=== PATIENT | female | born 1935 | race Caucasian/White ===

== ENCOUNTER 2018-02-02 15:09 | Emergency (ER) | payer BC, OTHER ==
[2018-02-02] MEDS: methylPREDNISolone INJ 125 MG/2 ML VIAL (J2930) IM (17:43)
== END 2018-02-02 17:44 | disposition home or self-care (01) ==
LOC: M ED 15:09
DX: M54.16 Radiculopathy, lumbar region (principal)
CPT/HCPCS: J2930

== ENCOUNTER → 2021-02-08 | Outpatient (REF) | payer BC, MEDICARE ==
[~2021-02-08] MED LIST: CLAR10CA3 PO; ESTR0.059 TD; FLUT11IN INH; HYDR-3713 PO; LIDO5DIS41 TD; METF500T13 PO; PROAAER10 INH; ZAFI1TAB PO
[2021-02-08 18:55] LABS: BASO % 0.4 % (0.0-1.0); EOS # 0.4 10^3/uL (0.0-0.5); HEMATOCRIT 34.6 % (36.0-47.0); HEMOGLOBIN 10.3 g/dl (12.0-15.5); LYMPH # 1.8 10^3/uL (1.5-5.0); LYMPH % 23.6 % (24.0-44.0); MEAN CORPUSCULAR HEMOGLOBIN 30.5 pg (27.0-33.0); MEAN CORPUSCULAR HGB CONC 29.8 g/dl (32.0-36.5); MEAN CORPUSCULAR VOLUME 102.4 fl (80.0-96.0); MONO # 0.6 10^3/uL (0.0-0.8); MONO % 8.2 % (2.0-8.0); NEUTROPHILS # 4.6 10^3/uL (1.5-8.5); NEUTROPHILS % 62.5 % (36.0-66.0); PLATELET COUNT, AUTOMATED 272 10^3/uL (150-450); RED BLOOD COUNT 3.38 10^6/uL (4.00-5.40); WHITE BLOOD COUNT 7.4 10^3/uL (4.0-10.0)
[2021-02-08 19:19] LABS: ALBUMIN 3.9 GM/DL (3.2-5.2); ALT/SGPT 22 U/L (12-78); BILIRUBIN,TOTAL 0.2 MG/DL (0.2-1.0); BLOOD UREA NITROGEN 18 MG/DL (7-18); CALCIUM LEVEL 8.9 MG/DL (8.8-10.2); CARBON DIOXIDE LEVEL 28 MEQ/L (21-32); CHLORIDE LEVEL 106 MEQ/L (98-107); CHOLESTEROL LEVEL 149 MG/DL (<200); CHOLESTEROL RISK RATIO 2.865 (<5); CREATININE FOR GFR 0.71 MG/DL (0.55-1.30); FREE T4 0.94 NG/DL (0.76-1.46); GLOMERULAR FILTRATION RATE > 60.0 (>32); GLUCOSE, FASTING 121 MG/DL (70-100); HDL CHOLESTEROL 52 MG/DL (>40); LDL CHOLESTEROL 69 MG/DL (<100); NON-HDL-C 97 MG/DL; POTASSIUM SERUM 4.5 MEQ/L (3.5-5.1); SODIUM LEVEL 139 MEQ/L (136-145); TRIGLYCERIDES LEVEL 138 MG/DL (<150)
[2021-02-08 19:21] LABS: MALB URINE SIEMENS 39.5 MG/L
[2021-02-08 19:26] LABS: HEMOGLOBIN A1c 6.7 %
[2021-02-09 14:15] LABS: TOTAL 25(OH) VITAMIN D 17.7 NG/ML (30.0-100.0)
== END ==
LOC: M SFHCPLAZ 15:18
PROVIDERS: ATTEND Nurse Practitioner Family
DX: D64.9 Anemia, unspecified (principal); E11.9 Type 2 diabetes mellitus without complications; E78.5 Hyperlipidemia, unspecified; E55.9 Vitamin D deficiency, unspecified

== ENCOUNTER → 2021-02-08 | Outpatient (CLI) | payer BC, MEDICARE ==
--- NOTE | 2021-02-09 04:12 | REPPI ---
INDICATION: M54.9 BACK PAIN, CHRONIC COMPARISON: 02/02/2018 TECHNIQUE: AP, lateral, bilateral oblique, and coned-down views of the lumbar spine. FINDINGS: Generalized age-related osteopenia and advanced multilevel degenerative changes have slightly progressed from prior examination. Findings include endplate sclerosis, osteophytosis, disc space narrowing and facet hypertrophy. Findings most prominent at L4-5 and L5-S1. Lordosis maintained in the lateral projection. Mild stable chronic scoliosis noted in the frontal projection. No evidence for acute fracture/compression injury or subluxation. IMPRESSION: Mildly progressive advanced multilevel degenerative spondylosis. No acute fracture/compression injury or subluxation. <Electronically signed by Lul Nguyễn > 02/09/21 0400
== END ==
LOC: M PLAIMG 15:16
PROVIDERS: ATTEND Nurse Practitioner Family
DX: M47.816 Spondylosis without myelopathy or radiculopathy, lumbar region (principal); M54.9 Dorsalgia, unspecified

== ENCOUNTER → 2021-11-30 | Outpatient (CLI) | payer MEDICARE | LOC: M PLAIMG 11:36 | PROVIDERS: ATTEND Nurse Practitioner Family | DX: M17.0 Bilateral primary osteoarthritis of knee (principal) ==

== ENCOUNTER → 2021-12-22 | Outpatient (CLI) | payer MEDICARE | LOC: M SOG 08:34 | PROVIDERS: ATTEND Orthopaedic Surgery Adult Reconstructive Orthopaedic Surgery | DX: M25.762 Osteophyte, left knee (principal); M25.761 Osteophyte, right knee ==

== ENCOUNTER → 2022-03-21 | Outpatient (CLI) | payer MEDICARE, BC ==
[2022-03-21 15:40] LABS: BASO % 0.6 % (0.0-1.0); EOS # 0.4 10^3/uL (0.0-0.5); EOS % 6.3 % (0.0-3.0); HEMATOCRIT 31.5 % (36.0-47.0); HEMOGLOBIN 8.9 g/dl (12.0-15.5); LYMPH # 1.5 10^3/uL (1.5-5.0); LYMPH % 22.5 % (24.0-44.0); MEAN CORPUSCULAR HEMOGLOBIN 27.5 pg (27.0-33.0); MEAN CORPUSCULAR HGB CONC 28.3 g/dl (32.0-36.5); MEAN CORPUSCULAR VOLUME 97.2 fl (80.0-96.0); MONO # 0.7 10^3/uL (0.0-0.8); MONO % 10.8 % (2.0-8.0); NEUTROPHILS % 59.4 % (36.0-66.0); PLATELET COUNT, AUTOMATED 217 10^3/uL (150-450); RED BLOOD COUNT 3.24 10^6/uL (4.00-5.40); WHITE BLOOD COUNT 6.7 10^3/uL (4.0-10.0)
[2022-03-21 16:15] LABS: CREATININE, URINE 91.7 MG/DL; MAU/CREAT RATIO 42.5 MCG/MG (0.0-30.0)
[2022-03-21 16:18] LABS: ALBUMIN 3.5 GM/DL (3.2-5.2); ALT/SGPT 21 U/L (12-78); BILIRUBIN,TOTAL 0.3 MG/DL (0.2-1.0); BLOOD UREA NITROGEN 19 MG/DL (7-18); CALCIUM LEVEL 8.6 MG/DL (8.8-10.2); CARBON DIOXIDE LEVEL 32 MEQ/L (21-32); CHLORIDE LEVEL 103 MEQ/L (98-107); CHOLESTEROL LEVEL 128 MG/DL (<200); CHOLESTEROL RISK RATIO 2.909 (<5); CREATININE FOR GFR 0.63 MG/DL (0.55-1.30); FREE T4 0.91 NG/DL (0.76-1.46); GLOMERULAR FILTRATION RATE > 60.0 (>32); GLUCOSE, FASTING 124 MG/DL (70-100); HDL CHOLESTEROL 44 MG/DL (>40); LDL CHOLESTEROL 60 MG/DL (<100); NON-HDL-C 84 MG/DL; POTASSIUM SERUM 4.5 MEQ/L (3.5-5.1); SODIUM LEVEL 136 MEQ/L (136-145); TOTAL PROTEIN 6.6 GM/DL (6.4-8.2); TRIGLYCERIDES LEVEL 120 MG/DL (<150)
== END ==
LOC: M PLALAB 14:14
PROVIDERS: ATTEND Nurse Practitioner Family
DX: E11.9 Type 2 diabetes mellitus without complications (principal); Z79.899 Other long term (current) drug therapy

== ENCOUNTER 2022-05-23 12:09 | Emergency (ER) | payer BC, MEDICARE ==
[~2022-05-23] VITALS: Ht 165.1 cm; Wt 75.0 kg
[2022-05-23] MEDS ORDERED: SUCR1ORA2 (13:24)
[2022-05-23] MEDS ORDERED: GLIP5TAB20 (13:24)
[2022-05-23 15:22] LABS: HEMATOCRIT 30.9 % (36.0-47.0); HEMOGLOBIN 8.7 g/dl (12.0-15.5); MEAN CORPUSCULAR HEMOGLOBIN 26.5 pg (27.0-33.0); MEAN CORPUSCULAR HGB CONC 28.2 g/dl (32.0-36.5); MEAN CORPUSCULAR VOLUME 94.2 fl (80.0-96.0); PLATELET COUNT, AUTOMATED 198 10^3/uL (150-450); RED BLOOD COUNT 3.28 10^6/uL (4.00-5.40); WHITE BLOOD COUNT 6.9 10^3/uL (4.0-10.0)
[2022-05-23 15:36] LABS: INR 0.94; PARTIAL THROMBOPLASTIN TIME 27.5 SECONDS (25.9-37.0)
[2022-05-23 15:56] LABS: ALBUMIN 3.6 GM/DL (3.2-5.2); ALT/SGPT 23 U/L (12-78); BILIRUBIN,DIRECT 0.1 MG/DL (0.0-0.2); BILIRUBIN,TOTAL 0.3 MG/DL (0.2-1.0); BLOOD UREA NITROGEN 14 MG/DL (7-18); CALCIUM LEVEL 8.8 MG/DL (8.8-10.2); CARBON DIOXIDE LEVEL 32 MEQ/L (21-32); CHLORIDE LEVEL 101 MEQ/L (98-107); GLOMERULAR FILTRATION RATE > 60.0 (>32); GLUCOSE, FASTING 141 MG/DL (70-100); POTASSIUM SERUM 4.5 MEQ/L (3.5-5.1); SODIUM LEVEL 135 MEQ/L (136-145); TOTAL PROTEIN 6.9 GM/DL (6.4-8.2)
[2022-05-23 15:57] LABS: RSV AMPLIFICATION NEGATIVE (NEGATIVE)
[2022-05-23 16:44] VITALS: BP 179/77
== END 2022-05-23 17:29 | disposition left against medical advice (07) ==
LOC: M ED 12:09
DX: K92.2 Gastrointestinal hemorrhage, unspecified (principal); I44.0 Atrioventricular block, first degree; I44.4 Left anterior fascicular block; I51.0 Cardiac septal defect, acquired; E11.9 Type 2 diabetes mellitus without complications; E78.5 Hyperlipidemia, unspecified; Z88.0 Allergy status to penicillin; Z88.2 Allergy status to sulfonamides; Z88.6 Allergy status to analgesic agent; Z79.4 Long term (current) use of insulin; Z79.899 Other long term (current) drug therapy; Z53.21 Procedure and treatment not carried out due to patient leaving prior to being seen by health care provider

== ENCOUNTER 2022-05-25 11:38 | Emergency (ER) | payer MEDICARE ==
[~2022-05-25] VITALS: Ht 165.1 cm; Wt 75.0 kg
[~2022-05-25 11:38] MED LIST changes: +GLIP5TAB20; +SUCR1ORA2
[2022-05-25 12:36] LABS: BASO % 0.5 % (0.0-1.0); EOS # 0.3 10^3/uL (0.0-0.5); EOS % 3.8 % (0.0-3.0); HEMOGLOBIN 8.7 g/dl (12.0-15.5); LYMPH # 1.5 10^3/uL (1.5-5.0); LYMPH % 17.7 % (24.0-44.0); MEAN CORPUSCULAR HGB CONC 28.1 g/dl (32.0-36.5); MEAN CORPUSCULAR VOLUME 92.8 fl (80.0-96.0); MONO # 0.8 10^3/uL (0.0-0.8); MONO % 9.2 % (2.0-8.0); NEUTROPHILS # 5.9 10^3/uL (1.5-8.5); NEUTROPHILS % 68.5 % (36.0-66.0); PLATELET COUNT, AUTOMATED 216 10^3/uL (150-450); RED BLOOD COUNT 3.34 10^6/uL (4.00-5.40); WHITE BLOOD COUNT 8.6 10^3/uL (4.0-10.0)
[2022-05-25 12:52] LABS: INR 0.94
[2022-05-25 13:00] LABS: ALBUMIN 3.5 GM/DL (3.2-5.2); ALT/SGPT 26 U/L (12-78); BILIRUBIN,DIRECT < 0.1 MG/DL (0.0-0.2); BILIRUBIN,TOTAL 0.3 MG/DL (0.2-1.0); BLOOD UREA NITROGEN 17 MG/DL (7-18); CALCIUM LEVEL 8.6 MG/DL (8.8-10.2); CARBON DIOXIDE LEVEL 30 MEQ/L (21-32); CHLORIDE LEVEL 104 MEQ/L (98-107); CK-MB VALUE MASS 1.1 NG/ML (<3.6); CREATININE FOR GFR 0.78 MG/DL (0.55-1.30); GLOMERULAR FILTRATION RATE > 60.0 (>32); GLUCOSE, FASTING 140 MG/DL (70-100); MB/CK RELATIVE INDEX 1.55 (< OR =4); POTASSIUM SERUM 4.4 MEQ/L (3.5-5.1); SODIUM LEVEL 136 MEQ/L (136-145); TOTAL PROTEIN 6.7 GM/DL (6.4-8.2)
[2022-05-25 13:45] VITALS: BP 150/72
[2022-05-25 14:03] LABS: FERRITIN 8 NG/ML (8-252); IRON (FE) 18 UG/DL (50-170); PERCENT SATURATION 4.8 % (13.2-45.0); TOTAL IRON BINDING CAPACITY 377 UG/DL (250-450)
== END 2022-05-25 14:15 | disposition home or self-care (01) ==
LOC: M ED 11:38
DX: R42 Dizziness and giddiness (principal); E11.9 Type 2 diabetes mellitus without complications; J45.20 Mild intermittent asthma, uncomplicated; E78.5 Hyperlipidemia, unspecified; Z79.899 Other long term (current) drug therapy; Z79.84 Long term (current) use of oral hypoglycemic drugs; Z88.0 Allergy status to penicillin; Z88.1 Allergy status to other antibiotic agents; Z88.2 Allergy status to sulfonamides; Z88.8 Allergy status to other drugs, medicaments and biological substances

== ENCOUNTER → 2022-07-14 | Outpatient (CLI) | payer MEDICARE ==
[~2022-07-14] MED LIST changes: -GLIP5TAB20; +GLIP5TAB20 PO; -SUCR1ORA2; +SUCR1ORA2 PO
== END ==
LOC: M LABSMTC 09:54
PROVIDERS: ATTEND Anesthesiology
DX: Z01.818 Encounter for other preprocedural examination (principal); Z11.52 Encounter for screening for COVID-19

== ENCOUNTER 2022-07-19 13:07 | Day surgery (SDC) | payer MEDICARE ==
[~2022-07-19] VITALS: Ht 162.6 cm; Wt 71.2 kg
[~2022-07-19 13:07] MED LIST changes: +NS 1,000 ML IV ONE; +propofoL 200 MG/20 ML VIAL As Ordered ONE
[2022-07-19 16:27] VITALS: BP 143/92
== END 2022-07-19 16:30 | disposition home or self-care (01) ==
LOC: M OPP 13:07
PROVIDERS: ATTEND Surgery
DX: D50.9 Iron deficiency anemia, unspecified (principal); K44.9 Diaphragmatic hernia without obstruction or gangrene; K29.70 Gastritis, unspecified, without bleeding; J45.909 Unspecified asthma, uncomplicated; E11.9 Type 2 diabetes mellitus without complications; Z80.1 Family history of malignant neoplasm of trachea, bronchus and lung; Z80.51 Family history of malignant neoplasm of kidney; Z79.51 Long term (current) use of inhaled steroids; Z79.84 Long term (current) use of oral hypoglycemic drugs; Z79.891 Long term (current) use of opiate analgesic; Z79.899 Other long term (current) drug therapy; Z88.0 Allergy status to penicillin; Z88.1 Allergy status to other antibiotic agents; Z88.2 Allergy status to sulfonamides; Z88.6 Allergy status to analgesic agent

== ENCOUNTER → 2023-01-10 | Outpatient (CLI) | payer MEDICARE ==
[~2023-01-10] MED LIST changes: -NS 1,000 ML IV ONE; -propofoL 200 MG/20 ML VIAL As Ordered ONE
[2023-01-10 17:14] LABS: BASO % 0.4 % (0.0-1.0); EOS # 0.2 10^3/uL (0.0-0.5); EOS % 2.5 % (0.0-3.0); FERRITIN 8.6 NG/ML (7.3-270.7); HEMATOCRIT 28.6 % (36.0-47.0); HEMOGLOBIN 8.1 g/dl (12.0-15.5); LYMPH # 1.2 10^3/uL (1.5-5.0); LYMPH % 16.2 % (24.0-44.0); MEAN CORPUSCULAR HEMOGLOBIN 26.1 pg (27.0-33.0); MEAN CORPUSCULAR HGB CONC 28.3 g/dl (32.0-36.5); MEAN CORPUSCULAR VOLUME 92.3 fl (80.0-96.0); MONO # 0.7 10^3/uL (0.0-0.8); MONO % 9.8 % (2.0-8.0); NEUTROPHILS # 5.3 10^3/uL (1.5-8.5); NEUTROPHILS % 70.7 % (36.0-66.0); PLATELET COUNT, AUTOMATED 193 10^3/uL (150-450); TOTAL 25(OH) VITAMIN D 37.7 NG/ML (20.0-100.0); VITAMIN B12 LEVEL 1970 PG/ML (211-911); WHITE BLOOD COUNT 7.5 10^3/uL (4.0-10.0)
[2023-01-10 17:15] LABS: TOTAL IRON BINDING CAPACITY 353 UG/DL (250-425)
[2023-01-10 17:16] LABS: ALBUMIN 3.4 G/DL (3.2-5.2); ALKALINE PHOSPHATASE 102 U/L (46-116); ALT/SGPT 13 U/L (7.0-40); AST/SGOT 33 U/L (<34); BILIRUBIN,TOTAL 0.5 MG/DL (0.3-1.2); BLOOD UREA NITROGEN 13 MG/DL (9-23); CALCIUM LEVEL 8.6 MG/DL (8.3-10.6); CARBON DIOXIDE LEVEL 32 MMOL/L (20-31); CHLORIDE LEVEL 100 MMOL/L (98-107); CREATININE FOR GFR 0.65 MG/DL (0.55-1.30); GLOMERULAR FILTRATION RATE > 60.0 (>32); GLUCOSE, FASTING 122 MG/DL (74-106); IRON (FE) 21 UG/DL (50-170); PERCENT SATURATION 5.9 % (13.2-45.0); POTASSIUM SERUM 4.6 MMOL/L (3.5-5.1); SODIUM LEVEL 138 MMOL/L (136-145); TOTAL PROTEIN 6.6 G/DL (5.7-8.2)
[2023-01-10 17:50] LABS: HEMOGLOBIN A1c 6.4 % (4.0-6.0)
== END ==
LOC: M PLALAB 15:18
PROVIDERS: ATTEND Physician Assistant
DX: E55.9 Vitamin D deficiency, unspecified (principal); E11.9 Type 2 diabetes mellitus without complications; D64.9 Anemia, unspecified; Z79.899 Other long term (current) drug therapy

== ENCOUNTER 2023-01-26 14:02 | Outpatient (CLI) | payer MEDICARE ==
[~2023-01-26] VITALS: Ht 165.1 cm; Wt 72.7 kg
[~2023-01-26 14:02] MED LIST changes: +ALBUTEROL SULFATE 2.5MG/0.5ML INH NEB SOLN INH PRN; +EPINEPHrine INJ 1 MG/ML 1ML AMP IM PRN; +FERRIC CARBOXYMALTOSE INJ 750 MG in NS 250 ML (>50kg) IV ONE; +NS 1,000 ML IV SCH; +diphenhydrAMINE 50MG/ML VIAL IV PRN; +methylPREDNISolone 125MG 2ML VIAL IV PRN
[2023-01-26 14:30] VITALS: BP 146/68
[2023-01-26 15:41] VITALS: BP 135/70
== END 2023-01-26 15:45 | disposition home or self-care (01) ==
LOC: M INFU 14:02
PROVIDERS: ATTEND Physician Assistant
DX: D50.9 Iron deficiency anemia, unspecified (principal); Z88.0 Allergy status to penicillin; Z88.2 Allergy status to sulfonamides; Z88.6 Allergy status to analgesic agent
CPT/HCPCS: 96365; J1439

== ENCOUNTER → 2023-02-03 | Outpatient (CLI) | payer MEDICARE ==
[~2023-02-03] MED LIST changes: -ALBUTEROL SULFATE 2.5MG/0.5ML INH NEB SOLN INH PRN; -EPINEPHrine INJ 1 MG/ML 1ML AMP IM PRN; -FERRIC CARBOXYMALTOSE INJ 750 MG in NS 250 ML (>50kg) IV ONE; +GASTROGRAFIN SOLUTION 30ML ONE; +ISOVUE-370 76% 100ML VIAL ONE; -NS 1,000 ML IV SCH; -diphenhydrAMINE 50MG/ML VIAL IV PRN; -methylPREDNISolone 125MG 2ML VIAL IV PRN
== END ==
LOC: M PLAIMG 11:16
PROVIDERS: ATTEND Physician Assistant
DX: D50.9 Iron deficiency anemia, unspecified (principal); R19.5 Other fecal abnormalities
CPT/HCPCS: 74177; Q9963; Q9967

== ENCOUNTER → 2023-04-05 | Outpatient (REF) | payer MEDICARE ==
[~2023-04-05] MED LIST changes: -GASTROGRAFIN SOLUTION 30ML ONE; -ISOVUE-370 76% 100ML VIAL ONE
== END ==
LOC: M SFHCPLAZ 17:15
PROVIDERS: ATTEND Nurse Practitioner Family
DX: Z79.899 Other long term (current) drug therapy (principal)

== ENCOUNTER 2023-05-08 17:47 | Inpatient (IN) | payer MEDICARE ==
[~2023-05-08] VITALS: Ht 165.1 cm; Wt 72.9 kg
[~2023-05-08 17:47] MED LIST changes: -FLUT11IN INH; +FLUT12AE6 INH; -ZAFI1TAB PO; +ZAFI20TA11 PO
[2023-05-08] MEDS ORDERED: PREG100C (18:53)
[2023-05-08] MEDS ORDERED: ESTR0.059 (18:54)
[2023-05-08 19:19] LABS: BASO % 0.6 % (0.0-1.0); EOS # 0.2 10^3/uL (0.0-0.5); HEMATOCRIT 21.9 % (36.0-47.0); LYMPH # 0.9 10^3/uL (1.5-5.0); LYMPH % 17.9 % (24.0-44.0); MEAN CORPUSCULAR HEMOGLOBIN 26.7 pg (27.0-33.0); MEAN CORPUSCULAR HGB CONC 28.3 g/dl (32.0-36.5); MEAN CORPUSCULAR VOLUME 94.4 fl (80.0-96.0); MONO # 0.5 10^3/uL (0.0-0.8); NEUTROPHILS # 3.5 10^3/uL (1.5-8.5); NEUTROPHILS % 67.9 % (36.0-66.0); PLATELET COUNT, AUTOMATED 168 10^3/uL (150-450); RED BLOOD COUNT 2.32 10^6/uL (4.00-5.40); WHITE BLOOD COUNT 5.2 10^3/uL (4.0-10.0)
[2023-05-08 19:26] LABS: HEMOGLOBIN 6.2 g/dl (12.0-15.5)
[2023-05-08 19:40] LABS: CK-MB VALUE MASS 1.8 NG/ML (<3.6); LIPASE 48 U/L (12-53)
[2023-05-08 19:42] LABS: ALBUMIN 3.4 G/DL (3.2-5.2); ALKALINE PHOSPHATASE 72 U/L (46-116); ALT/SGPT 11 U/L (7.0-40); AST/SGOT 18 U/L (<34); BILIRUBIN,DIRECT 0.1 MG/DL (<0.4); BILIRUBIN,TOTAL 0.3 MG/DL (0.3-1.2); BLOOD UREA NITROGEN 19 MG/DL (9-23); CALCIUM LEVEL 9.1 MG/DL (8.3-10.6); CARBON DIOXIDE LEVEL 28 MMOL/L (20-31); CHLORIDE LEVEL 102 MMOL/L (98-107); CPK CREATINE PHOSPHOKINASE 42 U/L (34-145); CREATININE FOR GFR 0.57 MG/DL (0.55-1.30); GLOMERULAR FILTRATION RATE > 60.0 (>32); GLUCOSE, FASTING 162 MG/DL (74-106); MB/CK RELATIVE INDEX 4.28 (< OR =4); POTASSIUM SERUM 4.6 MMOL/L (3.5-5.1); SODIUM LEVEL 137 MMOL/L (136-145); TOTAL PROTEIN 6.2 G/DL (5.7-8.2)
[2023-05-08 19:44] LABS: FREE T4 0.97 NG/DL (0.89-1.76)
[2023-05-08 19:49] LABS: INR 1.05; PROTHROMBIN TIME 13.9 SECONDS (12.5-14.5)
[2023-05-08] MEDS ORDERED: ISOVUE-370 76% 100ML VIAL As Ordered ONE (19:49)
[2023-05-08 19:50] LABS: PARTIAL THROMBOPLASTIN TIME 29.2 SECONDS (24.8-34.2)
[2023-05-08 20:51] LABS: CK-MB VALUE MASS 1.1 NG/ML (<3.6)
[2023-05-08 20:53] LABS: MB/CK RELATIVE INDEX 2.89 (< OR =4)
[2023-05-08] MEDS ORDERED: SUCRALFATE SUSP 1GM/10ML UD PO SCH (21:00)
[2023-05-08 21:05] VITALS: BP 157/68; TEMP 98.6; O2SAT 95
[2023-05-08] MEDS ORDERED: ACETAMINOPHEN TAB 650MG DOSE (2X325MG) PO ONE (21:15)
[2023-05-08] MEDS ORDERED: ESTR0.059 TD (21:51)
[2023-05-08] MEDS ORDERED: PREG100CA PO (21:51)
[2023-05-08] MEDS ORDERED: ALBU8.5H INH (21:51)
[2023-05-08] MEDS ORDERED: SUCR1SS PO (21:51)
[2023-05-08] MEDS ORDERED: LORA-622 PO (21:51)
[2023-05-08] MEDS ORDERED: FLUT12AE2 INH (21:51)
[2023-05-08] MEDS ORDERED: HYDR-4571 PO (21:51)
[2023-05-08] MEDS ORDERED: GLIP5TAB20 PO (21:51)
[2023-05-08] MEDS ORDERED: FLON1SPR (21:54)
[2023-05-08] MEDS ORDERED: HOME MED LIST COMPLETE! XX SCH (21:55)
[2023-05-08] MEDS ORDERED: NORCO, ANEXSIA 5/325MG TABLET (HYDROcodone/ACETAMINOPHEN) PO PRN (22:55)
[2023-05-08] MEDS ORDERED: PREGABALIN 100 MG CAP (LYRICA) PO PRN (22:55)
[2023-05-08] MEDS ORDERED: ALBUTEROL 90 MCG/ACT 8GM HFA INHALER INH PRN (22:55)
[2023-05-08] MEDS ORDERED: HYDROMORPHONE HCL 0.5 MG/ 0.5 ML SYRINGE IV PRN (23:00)
[2023-05-08] MEDS ORDERED: LR 1,000 ML IV SCH (23:00)
[2023-05-08] MEDS ORDERED: DEXTROSE 50% 50ML SYRINGE IV PRN (23:25)
[2023-05-08] MEDS ORDERED: GLUCAGON INJ 1MG VIAL SC PRN (23:25)
[2023-05-08] MEDS ORDERED: GLUCOSE 4GM CHEW TABLET PO PRN (23:25)
[2023-05-08 23:45] VITALS: BP 180/74; TEMP 97.7; O2SAT 98
[2023-05-08] MEDS: PANTOPRAZOLE 40MG VIAL IV SCH (23:57)
[2023-05-08] MEDS: SUCRALFATE SUSP 1GM/10ML UD PO SCH (23:58)
[2023-05-09] VITALS (7 sets, daily range): BP systolic 157–173; BP diastolic 67–71; TEMP 97–98.1; O2SAT 90–98
[2023-05-09] MEDS ORDERED: ACETAMINOPHEN TAB 650MG DOSE (2X325MG) PO ONE (02:00)
[2023-05-09 02:11] LABS: RSV AMPLIFICATION NEGATIVE (NEGATIVE)
[2023-05-09 05:03] LABS: HEMATOCRIT 28.1 % (36.0-47.0); MEAN CORPUSCULAR HEMOGLOBIN 27.8 pg (27.0-33.0); MEAN CORPUSCULAR HGB CONC 30.6 g/dl (32.0-36.5); MEAN CORPUSCULAR VOLUME 90.9 fl (80.0-96.0); PLATELET COUNT, AUTOMATED 150 10^3/uL (150-450); RED BLOOD COUNT 3.09 10^6/uL (4.00-5.40); WHITE BLOOD COUNT 4.9 10^3/uL (4.0-10.0)
[2023-05-09 05:12] LABS: HEMOGLOBIN 8.6 g/dl (12.0-15.5)
[2023-05-09 05:28] LABS: IRON (FE) 137 UG/DL (50-170); TOTAL IRON BINDING CAPACITY 351 UG/DL (250-425)
[2023-05-09 05:29] LABS: BLOOD UREA NITROGEN 15 MG/DL (9-23); CALCIUM LEVEL 8.6 MG/DL (8.3-10.6); CARBON DIOXIDE LEVEL 30 MMOL/L (20-31); CHLORIDE LEVEL 104 MMOL/L (98-107); CREATININE FOR GFR 0.61 MG/DL (0.55-1.30); GLOMERULAR FILTRATION RATE > 60.0 (>32); GLUCOSE, FASTING 143 MG/DL (74-106); POTASSIUM SERUM 4.5 MMOL/L (3.5-5.1); SODIUM LEVEL 138 MMOL/L (136-145)
[2023-05-09 05:31] LABS: FERRITIN 7.7 NG/ML (7.3-270.7)
[2023-05-09] MEDS: INSULIN LISPRO (NovoLOG) PER UNIT SC SCH ×3 (06:00→12:00)
[2023-05-09] MEDS ORDERED: MIRALAX *UNIT DOSE* 17GM PACKET PO PRN (06:35)
[2023-05-09 06:56] LABS: FOLATE 8.6 NG/ML (>5.4)
[2023-05-09 06:57] LABS: VITAMIN B12 LEVEL 925 PG/ML (211-911)
[2023-05-09] MEDS ORDERED: FLUTICASONE HFA 110MCG 12GM INHALER (FLOVENT) INH SCH (08:00)
[2023-05-09] MEDS ORDERED: DOCUSATE SODIUM 100MG CAPSULE PO SCH (09:00)
[2023-05-09] MEDS: SUCRALFATE SUSP 1GM/10ML UD PO SCH (09:33)
[2023-05-09] MEDS ORDERED: PROT1TAB2 PO (12:11)
[2023-05-09] MEDS: PANTOPRAZOLE 40MG VIAL IV SCH (12:14)
[2023-05-09] MEDS ORDERED: SENNA 8.6 MG TAB (SENOKOT) PO SCH (21:00)
== END 2023-05-09 12:46 | disposition home or self-care (01) | DRG 378 ==
LOC: M ED 17:47 → M ED INP 22:28 → M ICU 23:35
PROVIDERS: ADMIT Internal Medicine; ATTEND Internal Medicine
PROC: 30233N1 Transfusion of Nonautologous Red Blood Cells into Peripheral Vein, Percutaneous Approach (ICD-10-PCS; principal; 2023-05-08)
DX: K25.4 Chronic or unspecified gastric ulcer with hemorrhage (principal); F11.20 Opioid dependence, uncomplicated; E11.42 Type 2 diabetes mellitus with diabetic polyneuropathy; J45.909 Unspecified asthma, uncomplicated; R59.0 Localized enlarged lymph nodes; D50.0 Iron deficiency anemia secondary to blood loss (chronic); K44.9 Diaphragmatic hernia without obstruction or gangrene; G62.9 Polyneuropathy, unspecified; Z88.0 Allergy status to penicillin; Z88.2 Allergy status to sulfonamides; Z88.6 Allergy status to analgesic agent; Z79.899 Other long term (current) drug therapy

== ENCOUNTER → 2023-05-12 | Outpatient (CLI) | payer MEDICARE ==
[~2023-05-12] MED LIST changes: +ALBU8.5H INH; +ESTR0.059; +FLON1SPR; +FLUT12AE2 INH; +HYDR-4571 PO; +LORA-622 PO; +PREG100C; +PREG100CA PO; +PROT1TAB2 PO; +SUCR1SS PO
[2023-05-12 13:52] LABS: PERCENT SATURATION 4.6 % (13.2-45.0)
[2023-05-12 14:09] LABS: BASO % 0.5 % (0.0-1.0); EOS # 0.3 10^3/uL (0.0-0.5); EOS % 4.2 % (0.0-3.0); HEMATOCRIT 31.1 % (36.0-47.0); HEMOGLOBIN 9.2 g/dl (12.0-15.5); LYMPH # 1.3 10^3/uL (1.5-5.0); LYMPH % 16.7 % (24.0-44.0); MEAN CORPUSCULAR HEMOGLOBIN 27.8 pg (27.0-33.0); MEAN CORPUSCULAR HGB CONC 29.6 g/dl (32.0-36.5); MONO # 0.8 10^3/uL (0.0-0.8); MONO % 10.6 % (2.0-8.0); NEUTROPHILS # 5.3 10^3/uL (1.5-8.5); NEUTROPHILS % 67.6 % (36.0-66.0); PLATELET COUNT, AUTOMATED 166 10^3/uL (150-450); RED BLOOD COUNT 3.31 10^6/uL (4.00-5.40); WHITE BLOOD COUNT 7.9 10^3/uL (4.0-10.0)
== END ==
LOC: M PLALAB 12:17
PROVIDERS: ATTEND Nurse Practitioner Family
DX: D64.9 Anemia, unspecified (principal)

== ENCOUNTER → 2023-05-30 | Outpatient (CLI) | payer MEDICARE ==
[2023-05-30 14:01] LABS: BASO % 0.4 % (0.0-1.0); EOS # 0.2 10^3/uL (0.0-0.5); EOS % 2.1 % (0.0-3.0); HEMATOCRIT 32.1 % (36.0-47.0); HEMOGLOBIN 9.5 g/dl (12.0-15.5); LYMPH # 1.1 10^3/uL (1.5-5.0); LYMPH % 13.6 % (24.0-44.0); MEAN CORPUSCULAR HEMOGLOBIN 27.9 pg (27.0-33.0); MEAN CORPUSCULAR HGB CONC 29.6 g/dl (32.0-36.5); MEAN CORPUSCULAR VOLUME 94.1 fl (80.0-96.0); MONO # 0.7 10^3/uL (0.0-0.8); MONO % 8.7 % (2.0-8.0); NEUTROPHILS # 6.3 10^3/uL (1.5-8.5); NEUTROPHILS % 74.8 % (36.0-66.0); PLATELET COUNT, AUTOMATED 272 10^3/uL (150-450); RED BLOOD COUNT 3.41 10^6/uL (4.00-5.40); WHITE BLOOD COUNT 8.4 10^3/uL (4.0-10.0)
[2023-05-30 14:07] LABS: PERCENT SATURATION 2.4 % (13.2-45.0)
== END ==
LOC: M PLALAB 11:42
PROVIDERS: ATTEND Nurse Practitioner Family
DX: D64.9 Anemia, unspecified (principal)

== ENCOUNTER → 2023-07-03 | Outpatient (CLI) | payer MEDICARE ==
[2023-07-03 17:47] LABS: HEMATOCRIT 29.3 % (36.0-47.0); HEMOGLOBIN 8.2 g/dl (12.0-15.5); RED BLOOD COUNT 3.08 10^6/uL (4.00-5.40); WHITE BLOOD COUNT 6.6 10^3/uL (4.0-10.0)
[2023-07-03 17:48] LABS: BASO % 0.5 % (0.0-1.0); EOS # 0.3 10^3/uL (0.0-0.5); EOS % 4.5 % (0.0-3.0); LYMPH # 1.4 10^3/uL (1.5-5.0); LYMPH % 20.5 % (24.0-44.0); MEAN CORPUSCULAR HEMOGLOBIN 26.6 pg (27.0-33.0); MEAN CORPUSCULAR VOLUME 95.1 fl (80.0-96.0); MONO # 0.6 10^3/uL (0.0-0.8); MONO % 8.6 % (2.0-8.0); NEUTROPHILS # 4.3 10^3/uL (1.5-8.5); NEUTROPHILS % 65.6 % (36.0-66.0); PLATELET COUNT, AUTOMATED 258 10^3/uL (150-450)
[2023-07-03 18:00] LABS: HEMOGLOBIN A1c 6.8 % (4.0-6.0)
[2023-07-03 18:07] LABS: ALBUMIN 3.5 G/DL (3.2-5.2); ALKALINE PHOSPHATASE 66 U/L (46-116); ALT/SGPT 15 U/L (7.0-40); AST/SGOT 31 U/L (<34); BILIRUBIN,TOTAL 0.5 MG/DL (0.3-1.2); BLOOD UREA NITROGEN 19 MG/DL (9-23); CALCIUM LEVEL 8.8 MG/DL (8.3-10.6); CARBON DIOXIDE LEVEL 28 MMOL/L (20-31); CHLORIDE LEVEL 103 MMOL/L (98-107); CHOLESTEROL LEVEL 102 MG/DL (<200); CHOLESTEROL RISK RATIO 2.45 (<5); CREATININE FOR GFR 0.73 MG/DL (0.55-1.30); GLOMERULAR FILTRATION RATE > 60.0 (>32); GLUCOSE, FASTING 148 MG/DL (74-106); HDL CHOLESTEROL 41.5 MG/DL (>40); IRON (FE) 14 UG/DL (50-170); LDL CHOLESTEROL 44.5 MG/DL (<100); NON-HDL-C 60.5 MG/DL; PERCENT SATURATION 3.9 % (13.2-45.0); POTASSIUM SERUM 4.9 MMOL/L (3.5-5.1); SODIUM LEVEL 139 MMOL/L (136-145); TOTAL IRON BINDING CAPACITY 359 UG/DL (250-425); TOTAL PROTEIN 6.4 G/DL (5.7-8.2); TRIGLYCERIDES LEVEL 80 MG/DL (<150)
[2023-07-03 18:11] LABS: TOTAL 25(OH) VITAMIN D 36.4 NG/ML (20.0-100.0)
== END ==
LOC: M PLALAB 15:11
PROVIDERS: ATTEND Nurse Practitioner Family
DX: E11.9 Type 2 diabetes mellitus without complications (principal); D64.9 Anemia, unspecified; E78.5 Hyperlipidemia, unspecified; E55.9 Vitamin D deficiency, unspecified; Z79.899 Other long term (current) drug therapy

== ENCOUNTER 2023-08-17 12:07 | Emergency (ER) | payer MEDICARE ==
[~2023-08-17] VITALS: Ht 162.6 cm; Wt 65.9 kg
[~2023-08-17 12:07] MED LIST changes: -PREG100C; +PREG100C2
[2023-08-17 16:47] VITALS: BP 160/69; TEMP 98.7; O2SAT 95
== END 2023-08-17 17:15 | disposition home or self-care (01) ==
LOC: M ED 12:07
DX: R10.9 Unspecified abdominal pain (principal); E11.9 Type 2 diabetes mellitus without complications; J45.909 Unspecified asthma, uncomplicated; K44.9 Diaphragmatic hernia without obstruction or gangrene; Z88.0 Allergy status to penicillin; Z88.1 Allergy status to other antibiotic agents; Z88.2 Allergy status to sulfonamides; Z88.6 Allergy status to analgesic agent; Z79.52 Long term (current) use of systemic steroids; Z79.811 Long term (current) use of aromatase inhibitors; Z79.4 Long term (current) use of insulin; Z79.899 Other long term (current) drug therapy

== ENCOUNTER → 2023-08-25 | Outpatient (CLI) | payer MEDICARE ==
[2023-08-25 15:44] LABS: BASO % 0.3 % (0.0-1.0); EOS # 0.3 10^3/uL (0.0-0.5); EOS % 2.9 % (0.0-3.0); HEMATOCRIT 29.1 % (36.0-47.0); LYMPH % 8.7 % (24.0-44.0); MEAN CORPUSCULAR HEMOGLOBIN 26.8 pg (27.0-33.0); MEAN CORPUSCULAR HGB CONC 27.5 g/dl (32.0-36.5); MEAN CORPUSCULAR VOLUME 97.7 fl (80.0-96.0); MONO # 1.1 10^3/uL (0.0-0.8); MONO % 9.5 % (2.0-8.0); NEUTROPHILS % 78.2 % (36.0-66.0); PLATELET COUNT, AUTOMATED 369 10^3/uL (150-450); RED BLOOD COUNT 2.98 10^6/uL (4.00-5.40); WHITE BLOOD COUNT 11.5 10^3/uL (4.0-10.0)
[2023-08-25 16:00] LABS: IRON (FE) 11 UG/DL (50-170); PERCENT SATURATION 3.9 % (13.2-45.0); TOTAL IRON BINDING CAPACITY 283 UG/DL (250-425)
[2023-08-25 16:01] LABS: ALBUMIN 2.8 G/DL (3.2-5.2); ALKALINE PHOSPHATASE 73 U/L (46-116); ALT/SGPT 15 U/L (7.0-40); AST/SGOT 49 U/L (<34); BILIRUBIN,TOTAL 0.3 MG/DL (0.3-1.2); BLOOD UREA NITROGEN 13 MG/DL (9-23); CALCIUM LEVEL 8.4 MG/DL (8.3-10.6); CARBON DIOXIDE LEVEL 32 MMOL/L (20-31); CHLORIDE LEVEL 101 MMOL/L (98-107); CHOLESTEROL LEVEL 84 MG/DL (<200); CHOLESTEROL RISK RATIO 2.13 (<5); CREATININE FOR GFR 0.69 MG/DL (0.55-1.30); GLOMERULAR FILTRATION RATE > 60.0 (>32); GLUCOSE, FASTING 155 MG/DL (74-106); HDL CHOLESTEROL 39.4 MG/DL (>40); MAGNESIUM LEVEL 1.7 MG/DL (1.8-2.4); NON-HDL-C 44.6 MG/DL; POTASSIUM SERUM 3.8 MMOL/L (3.5-5.1); SODIUM LEVEL 138 MMOL/L (136-145); TOTAL PROTEIN 5.9 G/DL (5.7-8.2); TRIGLYCERIDES LEVEL 88 MG/DL (<150)
[2023-08-25 16:02] LABS: TOTAL 25(OH) VITAMIN D 36.9 NG/ML (20.0-100.0)
[2023-08-25 16:16] LABS: HEMOGLOBIN A1c 6.1 % (4.0-6.0)
== END ==
LOC: M PLALAB 13:58
PROVIDERS: ATTEND Nurse Practitioner Family
DX: E78.5 Hyperlipidemia, unspecified (principal); E11.9 Type 2 diabetes mellitus without complications; I10 Essential (primary) hypertension; D64.9 Anemia, unspecified; E55.9 Vitamin D deficiency, unspecified

== ENCOUNTER 2024-05-15 12:20 | Inpatient (IN) | payer MEDICARE ==
[~2024-05-15] VITALS: Ht 162.6 cm; Wt 56.8 kg
[2024-05-15 13:07] LABS: BASO % 0.4 % (0.0-1.0); EOS # 0.1 10^3/uL (0.0-0.5); EOS % 1.2 % (0.0-3.0); HEMOGLOBIN 9.9 g/dl (12.0-15.5); LYMPH # 0.8 10^3/uL (1.5-5.0); LYMPH % 9.3 % (24.0-44.0); MEAN CORPUSCULAR HEMOGLOBIN 28.7 pg (27.0-33.0); MEAN CORPUSCULAR HGB CONC 27.5 g/dl (32.0-36.5); MEAN CORPUSCULAR VOLUME 104.3 fl (80.0-96.0); MONO # 0.8 10^3/uL (0.0-0.8); MONO % 9.8 % (2.0-8.0); NEUTROPHILS # 6.4 10^3/uL (1.5-8.5); NEUTROPHILS % 78.6 % (36.0-66.0); PLATELET COUNT, AUTOMATED 156 10^3/uL (150-450); RED BLOOD COUNT 3.45 10^6/uL (4.00-5.40); WHITE BLOOD COUNT 8.1 10^3/uL (4.0-10.0)
[2024-05-15 13:31] LABS: THYROID STIMULATING HORMONE 9.153 uIU/ML (0.55-4.78)
[2024-05-15 13:52] LABS: ALBUMIN 3.1 G/DL (3.2-5.2); BILIRUBIN,DIRECT 0.4 MG/DL (<0.4); CALCIUM LEVEL 8.7 MG/DL (8.3-10.6); CREATININE FOR GFR 1.14 MG/DL (0.55-1.30); GLOMERULAR FILTRATION RATE 47.8 (>32); POTASSIUM SERUM 6.1 MMOL/L (3.5-5.1); TOTAL PROTEIN 6.4 G/DL (5.7-8.2)
[2024-05-15] MEDS ORDERED: ISOVUE-370 76% 100ML VIAL As Ordered ONE (13:58)
[2024-05-15] MEDS: FUROSEMIDE 40MG/4ML VIAL IV ONE (14:40)
[2024-05-15] MEDS: cefTRIAXone SOD 1 GM in D5W MINI-BAG PLUS 50 ML IV ONE (14:41)
[2024-05-15] MEDS ORDERED: MAALOX 30 ML SUSP *UDC PO PRN (15:25)
[2024-05-15 15:33] LABS: MAGNESIUM LEVEL 2.3 MG/DL (1.8-2.4)
[2024-05-15 15:38] LABS: FREE T4 0.82 NG/DL (0.89-1.76)
[2024-05-15] MEDS ORDERED: PANT-23 PO (16:09)
[2024-05-15] MEDS ORDERED: NITR100C2 PO (16:12)
[2024-05-15] MEDS ORDERED: HOME MED LIST COMPLETE! XX SCH (16:15)
[2024-05-15 17:30] VITALS: BP 138/80; TEMP 97.6; O2SAT 92
[2024-05-15] MEDS ORDERED: GLUCOSE 4 GM CHEW PO PRN (18:40)
[2024-05-15] MEDS ORDERED: DEXTROSE 50% 50ML SYRINGE IV PRN (18:40)
[2024-05-15] MEDS ORDERED: GLUCAGON INJ 1MG VIAL SC PRN (18:40)
[2024-05-15] MEDS: INSULIN LISPRO (NovoLOG) PER UNIT SC SCH ×2 (18:47→20:17)
[2024-05-15 19:54] LABS: CALCIUM LEVEL 8.6 MG/DL (8.3-10.6); CREATININE FOR GFR 1.12 MG/DL (0.55-1.30); GLOMERULAR FILTRATION RATE 48.8 (>32); POTASSIUM SERUM 5.3 MMOL/L (3.5-5.1)
[2024-05-15] MEDS: DOCUSATE SODIUM 100MG CAPSULE PO SCH (20:17)
[2024-05-15 20:19] VITALS: BP 129/61; TEMP 97.6; O2SAT 94
[2024-05-15] MEDS: HEPARIN SOD (PORCINE) 5000UNITS/ML 1ML VIAL/SYRINGE SQ SCH (20:24)
[2024-05-15] MEDS: ACETAMINOPHEN TAB 650MG DOSE (2X325MG) PO PRN (21:45)
[2024-05-15 23:30] VITALS: O2SAT 84
[2024-05-15 23:34] VITALS: O2SAT 86
[2024-05-15 23:39] VITALS: BP 125/58; TEMP 97.2; O2SAT 90
[2024-05-16] VITALS (9 sets, daily range): BP systolic 102–141; BP diastolic 50–81; TEMP 97.2–98.6; O2SAT 82–99
[2024-05-16 05:38] LABS: ALBUMIN 2.2 G/DL (3.2-5.2); BILIRUBIN,TOTAL 0.5 MG/DL (0.3-1.2); CALCIUM LEVEL 7.9 MG/DL (8.3-10.6); CREATININE FOR GFR 1.13 MG/DL (0.55-1.30); GLOMERULAR FILTRATION RATE 48.3 (>32); POTASSIUM SERUM 5.4 MMOL/L (3.5-5.1); TOTAL PROTEIN 4.2 G/DL (5.7-8.2)
[2024-05-16] MEDS: FUROSEMIDE 40MG/4ML VIAL IV SCH (08:37)
[2024-05-16] MEDS ORDERED: ENOXAPARIN 40MG/0.4ML SYRINGE (J1650 PER 10MG) SC SCH (09:00)
[2024-05-16] MEDS: cefTRIAXone SOD 1 GM in D5W MINI-BAG PLUS 50 ML IV SCH (15:02)
[2024-05-16] MEDS: OLANZapine INTRAMUSCULAR 10MG VIAL IM ONE (20:35)
[2024-05-16] MEDS: QUEtiapine FUMARATE 50MG TAB PO ONE (21:40)
[2024-05-16] MEDS: OLANZapine INTRAMUSCULAR 10MG VIAL IM PRN (21:41)
[2024-05-17] VITALS: TEMP 97.7; O2SAT 96
[2024-05-17 04:00] VITALS: BP 141/70; TEMP 97.8; O2SAT 99
[2024-05-17 05:26] LABS: ALBUMIN 2.5 G/DL (3.2-5.2); ALKALINE PHOSPHATASE 79 U/L (46-116); ALT/SGPT 385 U/L (7.0-40); AST/SGOT 658 U/L (<34); BILIRUBIN,TOTAL 0.5 MG/DL (0.3-1.2); BLOOD UREA NITROGEN 25 MG/DL (9-23); CALCIUM LEVEL 8.1 MG/DL (8.3-10.6); CARBON DIOXIDE LEVEL 31 MMOL/L (20-31); CHLORIDE LEVEL 103 MMOL/L (98-107); CREATININE FOR GFR 0.87 MG/DL (0.55-1.30); GLOMERULAR FILTRATION RATE > 60.0 (>32); GLUCOSE, FASTING 155 MG/DL (74-106); MAGNESIUM LEVEL 1.6 MG/DL (1.8-2.4); POTASSIUM SERUM 4.6 MMOL/L (3.5-5.1); SODIUM LEVEL 139 MMOL/L (136-145); TOTAL PROTEIN 5.3 G/DL (5.7-8.2)
[2024-05-17 08:51] LABS: HEPATITIS B SURFACE ANTIGEN NEGATIVE (NEGATIVE)
[2024-05-17 09:13] LABS: HEPATITIS B CORE ANTIBODY IGM NEGATIVE (NEGATIVE); HEPATITIS C VIRUS ABY INDEX < 0.02 INDEX (<0.8)
[2024-05-17] MEDS: MAG SULF 1GM/100ML (MAG RUN) 1 GM in IV 1 EA IV SCH ×2 (11:08→14:11)
[2024-05-17 12:17] VITALS: BP 150/67; TEMP 97.5; O2SAT 100
[2024-05-17] MEDS ORDERED: AMIODARONE 150MG/3ML VIAL IVP STA (17:24)
[2024-05-17] MEDS: QUEtiapine FUMARATE 50MG TAB PO ONE (18:34)
[2024-05-17 19:00] VITALS: BP 156/72; TEMP 97.8; O2SAT 99
[2024-05-17] MEDS ORDERED: MAG SULF 1GM/100ML (MAG RUN) 1 GM in IV 1 EA IV SCH (19:00)
[2024-05-18] VITALS (8 sets, daily range): BP systolic 118–156; BP diastolic 60–73; PULSE 94; TEMP 97.4–99.2; O2SAT 94–100
[2024-05-18 05:19] LABS: BASO % 0.3 % (0.0-1.0); EOS # 0.2 10^3/uL (0.0-0.5); EOS % 2.6 % (0.0-3.0); HEMATOCRIT 27.8 % (36.0-47.0); HEMOGLOBIN 7.8 g/dl (12.0-15.5); LYMPH # 0.5 10^3/uL (1.5-5.0); LYMPH % 9.3 % (24.0-44.0); MEAN CORPUSCULAR HEMOGLOBIN 28.8 pg (27.0-33.0); MEAN CORPUSCULAR HGB CONC 28.1 g/dl (32.0-36.5); MEAN CORPUSCULAR VOLUME 102.6 fl (80.0-96.0); MONO # 0.8 10^3/uL (0.0-0.8); NEUTROPHILS # 4.3 10^3/uL (1.5-8.5); NEUTROPHILS % 74.3 % (36.0-66.0); PLATELET COUNT, AUTOMATED 101 10^3/uL (150-450); RED BLOOD COUNT 2.71 10^6/uL (4.00-5.40); WHITE BLOOD COUNT 5.8 10^3/uL (4.0-10.0)
[2024-05-18 06:22] LABS: ALBUMIN 2.3 G/DL (3.2-5.2); ALKALINE PHOSPHATASE 69 U/L (46-116); ALT/SGPT 298 U/L (7.0-40); AST/SGOT 430 U/L (<34); BILIRUBIN,TOTAL 0.5 MG/DL (0.3-1.2); BLOOD UREA NITROGEN 18 MG/DL (9-23); CALCIUM LEVEL 8.1 MG/DL (8.3-10.6); CARBON DIOXIDE LEVEL 36 MMOL/L (20-31); CHLORIDE LEVEL 101 MMOL/L (98-107); CREATININE FOR GFR 0.75 MG/DL (0.55-1.30); GLOMERULAR FILTRATION RATE > 60.0 (>32); GLUCOSE, FASTING 133 MG/DL (74-106); MAGNESIUM LEVEL 1.7 MG/DL (1.8-2.4); POTASSIUM SERUM 4.1 MMOL/L (3.5-5.1); SODIUM LEVEL 140 MMOL/L (136-145)
[2024-05-18] MEDS: QUEtiapine FUMARATE 25 MG TAB PO SCH (08:47)
[2024-05-18] MEDS: MAG SULF 1GM/100ML (MAG RUN) 1 GM in IV 1 EA IV ONE (08:48)
[2024-05-18] MEDS: PREGABALIN 100 MG CAP (LYRICA) PO SCH (15:16)
[2024-05-19] VITALS (13 sets, daily range): BP systolic 128–167; BP diastolic 61–96; TEMP 97.5–98.1; O2SAT 85–98
[2024-05-19 06:30] LABS: BASO % 0.6 % (0.0-1.0); EOS # 0.3 10^3/uL (0.0-0.5); EOS % 6.8 % (0.0-3.0); HEMATOCRIT 30.4 % (36.0-47.0); HEMOGLOBIN 8.3 g/dl (12.0-15.5); LYMPH # 0.9 10^3/uL (1.5-5.0); LYMPH % 17.9 % (24.0-44.0); MEAN CORPUSCULAR HEMOGLOBIN 28.5 pg (27.0-33.0); MEAN CORPUSCULAR HGB CONC 27.3 g/dl (32.0-36.5); MEAN CORPUSCULAR VOLUME 104.5 fl (80.0-96.0); MONO # 0.8 10^3/uL (0.0-0.8); MONO % 15.8 % (2.0-8.0); NEUTROPHILS # 2.8 10^3/uL (1.5-8.5); NEUTROPHILS % 58.7 % (36.0-66.0); RED BLOOD COUNT 2.91 10^6/uL (4.00-5.40); WHITE BLOOD COUNT 4.7 10^3/uL (4.0-10.0)
[2024-05-19 07:01] LABS: ALBUMIN 2.3 G/DL (3.2-5.2); ALKALINE PHOSPHATASE 66 U/L (46-116); ALT/SGPT 235 U/L (7.0-40); AST/SGOT 266 U/L (<34); BILIRUBIN,TOTAL 0.4 MG/DL (0.3-1.2); BLOOD UREA NITROGEN 19 MG/DL (9-23); CALCIUM LEVEL 8.3 MG/DL (8.3-10.6); CARBON DIOXIDE LEVEL 40 MMOL/L (20-31); CHLORIDE LEVEL 103 MMOL/L (98-107); CREATININE FOR GFR 0.87 MG/DL (0.55-1.30); GLOMERULAR FILTRATION RATE > 60.0 (>32); GLUCOSE, FASTING 128 MG/DL (74-106); MAGNESIUM LEVEL 1.8 MG/DL (1.8-2.4); POTASSIUM SERUM 4.4 MMOL/L (3.5-5.1); SODIUM LEVEL 142 MMOL/L (136-145); TOTAL PROTEIN 5.1 G/DL (5.7-8.2)
[2024-05-19 07:03] LABS: PLATELET COUNT, AUTOMATED 92 10^3/uL (150-450)
[2024-05-19 07:04] LABS: HYPOCHROMASIA 2+; PLATELET ESTIMATE DECREASED (NORMAL); SCHISTOCYTES 1+
[2024-05-19 07:05] LABS: ANISOCYTOSIS 3+
[2024-05-19 07:06] LABS: MICROCYTOSIS 1+; POLYCHROMASIA 1+; SPHEROCYTES 1+
[2024-05-19] MEDS: IPRATROPIUM 0.5MG/ALBUTEROL 2.5MG INH SOL UD 3ML (DUONEB) NEB SCH (08:35)
[2024-05-19 08:44] LABS: ABG BASE EXCESS 10.9 (-2.0-2.0); ABG HCO3 39.5 MMOL/L (22.0-26.0); ABG O2 SATURATION 30.8 % (95.0-99.0); ABG PARTIAL PRESSURE CO2 80.9 mmHg (35.0-45.0); ABG PARTIAL PRESSURE O2 20.6 mmHg (75.0-100.0); ABG STANDARD HCO3 33.3 MMOL/L. (22.0-26.0); ABG pH (ARTERIAL) 7.307 UNITS (7.350-7.450)
[2024-05-19] MEDS ORDERED: CEFEPIME HCL 1 GM in D5W MINI-BAG PLUS 50 ML IV SCH (09:30)
[2024-05-19 10:15] LABS: ABG BASE EXCESS 9.9 (-2.0-2.0); ABG HCO3 37.2 MMOL/L (22.0-26.0); ABG O2 SATURATION 99.8 % (95.0-99.0); ABG PARTIAL PRESSURE O2 224.8 mmHg (75.0-100.0); ABG STANDARD HCO3 33.7 MMOL/L. (22.0-26.0); ABG TOTAL CO2 39.2 MMOL/L (23.0-31.0); ABG pH (ARTERIAL) 7.364 UNITS (7.350-7.450)
[2024-05-19 10:16] LABS: ABG PARTIAL PRESSURE CO2 66.7 mmHg (35.0-45.0)
[2024-05-19] MEDS: CEFEPIME HCL 2 GM in D5W MINI-BAG PLUS 50 ML IV SCH (11:06)
[2024-05-20] VITALS (7 sets, daily range): BP systolic 117–156; BP diastolic 55–88; TEMP 97.4–98; O2SAT 80–99
[2024-05-20 11:51] LABS: BASO % 0.6 % (0.0-1.0); EOS # 0.2 10^3/uL (0.0-0.5); HEMATOCRIT 30.5 % (36.0-47.0); HEMOGLOBIN 8.5 g/dl (12.0-15.5); LYMPH # 0.5 10^3/uL (1.5-5.0); LYMPH % 8.8 % (24.0-44.0); MEAN CORPUSCULAR HGB CONC 27.9 g/dl (32.0-36.5); MEAN CORPUSCULAR VOLUME 104.1 fl (80.0-96.0); MONO # 0.6 10^3/uL (0.0-0.8); MONO % 11.5 % (2.0-8.0); NEUTROPHILS # 3.9 10^3/uL (1.5-8.5); NEUTROPHILS % 74.9 % (36.0-66.0); RED BLOOD COUNT 2.93 10^6/uL (4.00-5.40); WHITE BLOOD COUNT 5.2 10^3/uL (4.0-10.0)
[2024-05-20 12:03] LABS: PLATELET COUNT, AUTOMATED 93 10^3/uL (150-450)
[2024-05-20 12:17] LABS: CK-MB VALUE MASS 2.1 NG/ML (<3.6)
[2024-05-20 12:19] LABS: CPK CREATINE PHOSPHOKINASE 135 U/L (34-145); MB/CK RELATIVE INDEX 1.55 (< OR =4)
[2024-05-20 12:26] LABS: PROCALCITONIN 0.09 ng/ml
[2024-05-20 12:29] LABS: ALBUMIN 2.4 G/DL (3.2-5.2); ALKALINE PHOSPHATASE 64 U/L (46-116); ALT/SGPT 175 U/L (7.0-40); AST/SGOT 157 U/L (<34); BILIRUBIN,TOTAL 0.4 MG/DL (0.3-1.2); BLOOD UREA NITROGEN 19 MG/DL (9-23); CALCIUM LEVEL 8.1 MG/DL (8.3-10.6); CARBON DIOXIDE LEVEL 39 MMOL/L (20-31); CHLORIDE LEVEL 96 MMOL/L (98-107); GLOMERULAR FILTRATION RATE > 60.0 (>32); GLUCOSE, FASTING 229 MG/DL (74-106); MAGNESIUM LEVEL 1.6 MG/DL (1.8-2.4); POTASSIUM SERUM 4.3 MMOL/L (3.5-5.1); SODIUM LEVEL 135 MMOL/L (136-145); TOTAL PROTEIN 5.4 G/DL (5.7-8.2)
[2024-05-20] MEDS: MAG SULF 1GM/100ML (MAG RUN) 1 GM in IV 1 EA IV SCH (14:35)
[2024-05-20] MEDS: CEFDINIR 300 MG CAP (OMNICEF) PO SCH (21:16)
[2024-05-21] VITALS (7 sets, daily range): BP systolic 112–156; BP diastolic 53–70; TEMP 97.9–98.7; O2SAT 90–99
[2024-05-21] MEDS ORDERED: PREGABALIN 100 MG CAP (LYRICA) PO ONE (01:00)
[2024-05-21] MEDS: traMADol 50 MG TAB PO ONE ×2 (01:02→23:47)
[2024-05-21 06:15] LABS: BASO % 0.4 % (0.0-1.0); EOS # 0.4 10^3/uL (0.0-0.5); EOS % 7.6 % (0.0-3.0); HEMATOCRIT 27.7 % (36.0-47.0); HEMOGLOBIN 7.8 g/dl (12.0-15.5); LYMPH # 0.9 10^3/uL (1.5-5.0); LYMPH % 17.5 % (24.0-44.0); MEAN CORPUSCULAR HEMOGLOBIN 28.6 pg (27.0-33.0); MEAN CORPUSCULAR HGB CONC 28.2 g/dl (32.0-36.5); MEAN CORPUSCULAR VOLUME 101.5 fl (80.0-96.0); MONO # 0.7 10^3/uL (0.0-0.8); MONO % 13.6 % (2.0-8.0); NEUTROPHILS % 60.7 % (36.0-66.0); RED BLOOD COUNT 2.73 10^6/uL (4.00-5.40); WHITE BLOOD COUNT 4.9 10^3/uL (4.0-10.0)
[2024-05-21 06:40] LABS: ALBUMIN 2.3 G/DL (3.2-5.2); ALKALINE PHOSPHATASE 57 U/L (46-116); ALT/SGPT 134 U/L (7.0-40); AST/SGOT 108 U/L (<34); BILIRUBIN,TOTAL 0.5 MG/DL (0.3-1.2); BLOOD UREA NITROGEN 18 MG/DL (9-23); CALCIUM LEVEL 8.2 MG/DL (8.3-10.6); CARBON DIOXIDE LEVEL 39 MMOL/L (20-31); CHLORIDE LEVEL 97 MMOL/L (98-107); CREATININE FOR GFR 0.67 MG/DL (0.55-1.30); GLOMERULAR FILTRATION RATE > 60.0 (>32); GLUCOSE, FASTING 125 MG/DL (74-106); MAGNESIUM LEVEL 1.9 MG/DL (1.8-2.4); PLATELET COUNT, AUTOMATED 95 10^3/uL (150-450); POTASSIUM SERUM 4.1 MMOL/L (3.5-5.1); SODIUM LEVEL 139 MMOL/L (136-145); TOTAL PROTEIN 5.1 G/DL (5.7-8.2)
[2024-05-21] MEDS: LIDOCAINE 4% CREAM 5GM (LMX4) TOP PRN (20:04)
[2024-05-22] VITALS (7 sets, daily range): BP systolic 124–180; BP diastolic 58–78; TEMP 97.3–99.1; O2SAT 95–100
[2024-05-22 05:26] LABS: HEMATOCRIT 30.4 % (36.0-47.0); HEMOGLOBIN 8.4 g/dl (12.0-15.5); MEAN CORPUSCULAR HGB CONC 27.6 g/dl (32.0-36.5); MEAN CORPUSCULAR VOLUME 101.3 fl (80.0-96.0); PLATELET COUNT, AUTOMATED 116 10^3/uL (150-450); WHITE BLOOD COUNT 5.1 10^3/uL (4.0-10.0)
[2024-05-22 05:54] LABS: BLOOD UREA NITROGEN 15 MG/DL (9-23); CARBON DIOXIDE LEVEL > 40.0 MMOL/L (20-31); CHLORIDE LEVEL 96 MMOL/L (98-107); CREATININE FOR GFR 0.69 MG/DL (0.55-1.30); GLOMERULAR FILTRATION RATE > 60.0 (>32); GLUCOSE, FASTING 126 MG/DL (74-106); MAGNESIUM LEVEL 1.8 MG/DL (1.8-2.4); POTASSIUM SERUM 3.9 MMOL/L (3.5-5.1); SODIUM LEVEL 139 MMOL/L (136-145)
[2024-05-22] MEDS: traMADol 50 MG TAB PO ONE (19:49)
[2024-05-23] VITALS (10 sets, daily range): BP systolic 117–151; BP diastolic 58–69; TEMP 96.9–98.4; O2SAT 85–97
[2024-05-23] MEDS ORDERED: PILL CUTTER 1 EACH XX PRN (11:05)
[2024-05-23] MEDS: PERCOCET 5MG/325MG TAB PO PRN ×2 (11:41→11:43)
[2024-05-23] MEDS: ACETAMINOPHEN TAB 650MG DOSE (2X325MG) PO PRN (15:10)
[2024-05-23] MEDS: ALBUTEROL SULFATE 2.5MG/0.5ML INH NEB SOLN NEB PRN (16:42)
[2024-05-24] VITALS (7 sets, daily range): BP systolic 114–146; BP diastolic 54–94; TEMP 97.8–98.5; O2SAT 94–100
[2024-05-24 06:34] LABS: HEMATOCRIT 30.8 % (36.0-47.0); HEMOGLOBIN 8.7 g/dl (12.0-15.5); MEAN CORPUSCULAR HEMOGLOBIN 28.4 pg (27.0-33.0); MEAN CORPUSCULAR HGB CONC 28.2 g/dl (32.0-36.5); MEAN CORPUSCULAR VOLUME 100.7 fl (80.0-96.0); PLATELET COUNT, AUTOMATED 149 10^3/uL (150-450); RED BLOOD COUNT 3.06 10^6/uL (4.00-5.40); WHITE BLOOD COUNT 4.9 10^3/uL (4.0-10.0)
[2024-05-24] MEDS: FUROSEMIDE 40 MG TAB PO SCH (08:03)
[2024-05-25 03:42] VITALS: BP 148/62; TEMP 97.3; O2SAT 97
[2024-05-25 08:00] VITALS: BP 153/65; TEMP 97.4; O2SAT 96
[2024-05-25 19:39] VITALS: BP 149/86; TEMP 97.3; O2SAT 100
[2024-05-26 03:50] VITALS: BP 146/69; TEMP 97.3; O2SAT 96
[2024-05-26 06:44] LABS: HEMOGLOBIN 8.1 g/dl (12.0-15.5); MEAN CORPUSCULAR HEMOGLOBIN 28.3 pg (27.0-33.0); MEAN CORPUSCULAR HGB CONC 27.9 g/dl (32.0-36.5); MEAN CORPUSCULAR VOLUME 101.4 fl (80.0-96.0); PLATELET COUNT, AUTOMATED 182 10^3/uL (150-450); RED BLOOD COUNT 2.86 10^6/uL (4.00-5.40); WHITE BLOOD COUNT 5.3 10^3/uL (4.0-10.0)
[2024-05-26 07:00] VITALS: BP 142/70; TEMP 98.2; O2SAT 97
[2024-05-26 07:34] LABS: ALBUMIN 2.5 G/DL (3.2-5.2); ALKALINE PHOSPHATASE 200 U/L (46-116); ALT/SGPT 81 U/L (7.0-40); AST/SGOT 129 U/L (<34); BILIRUBIN,TOTAL 0.6 MG/DL (0.3-1.2); BLOOD UREA NITROGEN 17 MG/DL (9-23); CALCIUM LEVEL 8.5 MG/DL (8.3-10.6); CARBON DIOXIDE LEVEL > 40.0 MMOL/L (20-31); CHLORIDE LEVEL 96 MMOL/L (98-107); CREATININE FOR GFR 0.78 MG/DL (0.55-1.30); GLOMERULAR FILTRATION RATE > 60.0 (>32); GLUCOSE, FASTING 127 MG/DL (74-106); POTASSIUM SERUM 4.1 MMOL/L (3.5-5.1); SODIUM LEVEL 139 MMOL/L (136-145); TOTAL PROTEIN 5.7 G/DL (5.7-8.2)
[2024-05-26] MEDS: LIDOCAINE 5% (LIDODERM) PATCH TD SCH (10:12)
[2024-05-26 16:02] VITALS: BP 138/63; TEMP 98.2; O2SAT 100
[2024-05-26 16:20] VITALS: BP 147/78; TEMP 97.9; O2SAT 100
[2024-05-26 19:32] VITALS: BP 141/73; TEMP 97.9; O2SAT 97
[2024-05-27] VITALS (8 sets, daily range): BP systolic 121–126; BP diastolic 62–71; TEMP 97.9; O2SAT 89–99
[2024-05-27 13:39] LABS: HEMATOCRIT 33.3 % (36.0-47.0); HEMOGLOBIN 9.5 g/dl (12.0-15.5); MEAN CORPUSCULAR HEMOGLOBIN 28.4 pg (27.0-33.0); MEAN CORPUSCULAR HGB CONC 28.5 g/dl (32.0-36.5); MEAN CORPUSCULAR VOLUME 99.7 fl (80.0-96.0); PLATELET COUNT, AUTOMATED 276 10^3/uL (150-450); RED BLOOD COUNT 3.34 10^6/uL (4.00-5.40)
[2024-05-27 14:22] LABS: ALKALINE PHOSPHATASE 323 U/L (46-116); ALT/SGPT 108 U/L (7.0-40); AST/SGOT 180 U/L (<34); BILIRUBIN,TOTAL 0.5 MG/DL (0.3-1.2); BLOOD UREA NITROGEN 15 MG/DL (9-23); CALCIUM LEVEL 8.8 MG/DL (8.3-10.6); CARBON DIOXIDE LEVEL 37 MMOL/L (20-31); CHLORIDE LEVEL 96 MMOL/L (98-107); CREATININE FOR GFR 0.72 MG/DL (0.55-1.30); GLOMERULAR FILTRATION RATE > 60.0 (>32); GLUCOSE, FASTING 51 MG/DL (74-106); POTASSIUM SERUM 3.8 MMOL/L (3.5-5.1); SODIUM LEVEL 138 MMOL/L (136-145); TOTAL PROTEIN 6.6 G/DL (5.7-8.2)
[2024-05-28] VITALS (7 sets, daily range): BP systolic 128–142; BP diastolic 65–72; TEMP 97.9–98.8; O2SAT 85–99
[2024-05-28] MEDS: PREGABALIN 100 MG CAP (LYRICA) PO SCH (15:46)
[2024-05-29 01:30] VITALS: O2SAT 93
[2024-05-29 04:21] VITALS: BP 112/53; TEMP 98.1; O2SAT 96
[2024-05-29 07:57] LABS: ALBUMIN 2.5 G/DL (3.2-5.2); ALKALINE PHOSPHATASE 194 U/L (46-116); ALT/SGPT 55 U/L (7.0-40); AST/SGOT 64 U/L (<34); BILIRUBIN,TOTAL 0.4 MG/DL (0.3-1.2); BLOOD UREA NITROGEN 14 MG/DL (9-23); CALCIUM LEVEL 8.6 MG/DL (8.3-10.6); CARBON DIOXIDE LEVEL 36 MMOL/L (20-31); CHLORIDE LEVEL 98 MMOL/L (98-107); CREATININE FOR GFR 0.83 MG/DL (0.55-1.30); GLOMERULAR FILTRATION RATE > 60.0 (>32); GLUCOSE, FASTING 128 MG/DL (74-106); POTASSIUM SERUM 4.6 MMOL/L (3.5-5.1); SODIUM LEVEL 137 MMOL/L (136-145); TOTAL PROTEIN 5.5 G/DL (5.7-8.2)
[2024-05-29 12:00] VITALS: BP 109/53; TEMP 97.9; O2SAT 94
[2024-05-29 20:25] VITALS: BP 125/63; TEMP 97.2; O2SAT 90
[2024-05-30] VITALS (11 sets, daily range): BP systolic 82–115; BP diastolic 52–80; TEMP 97.7–98.1; O2SAT 83–99
[2024-05-30] MEDS: NS 1,000 ML IV SCH (12:21)
[2024-05-30 13:43] LABS: ALBUMIN 2.5 G/DL (3.2-5.2); ALKALINE PHOSPHATASE 170 U/L (46-116); ALT/SGPT 45 U/L (7.0-40); AST/SGOT 44 U/L (<34); BILIRUBIN,TOTAL 0.3 MG/DL (0.3-1.2); BLOOD UREA NITROGEN 21 MG/DL (9-23); CALCIUM LEVEL 8.7 MG/DL (8.3-10.6); CARBON DIOXIDE LEVEL 34 MMOL/L (20-31); CHLORIDE LEVEL 98 MMOL/L (98-107); CREATININE FOR GFR 0.82 MG/DL (0.55-1.30); GLOMERULAR FILTRATION RATE > 60.0 (>32); GLUCOSE, FASTING 187 MG/DL (74-106); POTASSIUM SERUM 4.5 MMOL/L (3.5-5.1); SODIUM LEVEL 135 MMOL/L (136-145); TOTAL PROTEIN 5.9 G/DL (5.7-8.2)
[2024-05-30 13:46] LABS: HEMATOCRIT 32.1 % (36.0-47.0); HEMOGLOBIN 8.9 g/dl (12.0-15.5); MEAN CORPUSCULAR HGB CONC 27.7 g/dl (32.0-36.5); MEAN CORPUSCULAR VOLUME 104.6 fl (80.0-96.0); PLATELET COUNT, AUTOMATED 265 10^3/uL (150-450); RED BLOOD COUNT 3.07 10^6/uL (4.00-5.40); VENOUS BASE EXCESS 3.2 (-2.0-2.0); VENOUS HCO3 31.3 MMOL/L (23.0-27.0); VENOUS O2 SATURATION 72.6 % (60.0-80.0); VENOUS PARTIAL PRESSURE CO2 68.8 mmHg (38.0-50.0); VENOUS PARTIAL PRESSURE O2 42.9 mmHg (30.0-50.0); VENOUS PH 7.276 UNITS (7.330-7.430); VENOUS STANDARD HCO3 26.9 MMOL/L; VENOUS TOTAL CO2 33.4 MMOL/L (24.0-28.0); WHITE BLOOD COUNT 8.1 10^3/uL (4.0-10.0)
[2024-05-30 18:25] LABS: VENOUS BASE EXCESS 6.7 (-2.0-2.0); VENOUS HCO3 33.7 MMOL/L (23.0-27.0); VENOUS O2 SATURATION 97.7 % (60.0-80.0); VENOUS PARTIAL PRESSURE CO2 62.4 mmHg (38.0-50.0); VENOUS PARTIAL PRESSURE O2 97.3 mmHg (30.0-50.0); VENOUS STANDARD HCO3 30.5 MMOL/L; VENOUS TOTAL CO2 35.6 MMOL/L (24.0-28.0)
[2024-05-30 20:54] LABS: BASO % 0.3 % (0.0-1.0); EOS # 0.1 10^3/uL (0.0-0.5); EOS % 1.3 % (0.0-3.0); HEMATOCRIT 31.6 % (36.0-47.0); HEMOGLOBIN 8.8 g/dl (12.0-15.5); LYMPH # 0.8 10^3/uL (1.5-5.0); LYMPH % 6.9 % (24.0-44.0); MEAN CORPUSCULAR HEMOGLOBIN 28.3 pg (27.0-33.0); MEAN CORPUSCULAR HGB CONC 27.8 g/dl (32.0-36.5); MEAN CORPUSCULAR VOLUME 101.6 fl (80.0-96.0); MONO # 0.8 10^3/uL (0.0-0.8); MONO % 7.6 % (2.0-8.0); NEUTROPHILS # 9.3 10^3/uL (1.5-8.5); NEUTROPHILS % 83.4 % (36.0-66.0); PLATELET COUNT, AUTOMATED 287 10^3/uL (150-450); RED BLOOD COUNT 3.11 10^6/uL (4.00-5.40); WHITE BLOOD COUNT 11.1 10^3/uL (4.0-10.0)
[2024-05-30 21:05] LABS: ABG BASE EXCESS 4.6 (-2.0-2.0); ABG HCO3 30.9 MMOL/L (22.0-26.0); ABG O2 SATURATION 92.7 % (95.0-99.0); ABG PARTIAL PRESSURE CO2 55.4 mmHg (35.0-45.0); ABG PARTIAL PRESSURE O2 66.6 mmHg (75.0-100.0); ABG STANDARD HCO3 28.5 MMOL/L. (22.0-26.0); ABG TOTAL CO2 32.6 MMOL/L (23.0-31.0); ABG pH (ARTERIAL) 7.364 UNITS (7.350-7.450)
[2024-05-30 21:27] LABS: PROCALCITONIN 0.11 ng/ml
[2024-05-30 21:28] LABS: ALBUMIN 2.7 G/DL (3.2-5.2); BILIRUBIN,TOTAL 0.4 MG/DL (0.3-1.2); CALCIUM LEVEL 8.8 MG/DL (8.3-10.6); CREATININE FOR GFR 0.99 MG/DL (0.55-1.30); GLOMERULAR FILTRATION RATE 56.2 (>32); MAGNESIUM LEVEL 1.9 MG/DL (1.8-2.4); POTASSIUM SERUM 5.4 MMOL/L (3.5-5.1); TOTAL PROTEIN 6.2 G/DL (5.7-8.2)
[2024-05-30] MEDS: FUROSEMIDE 20MG/2ML VIAL IV ONE (21:46)
[2024-05-31 07:40] VITALS: O2SAT 96
[2024-05-31] MEDS ORDERED: DOCUSATE SODIUM 100MG CAPSULE As Ordered ONE (09:01)
[2024-05-31] MEDS ORDERED: LIDOCAINE 5% (LIDODERM) PATCH As Ordered ONE (09:03)
[2024-05-31] MEDS ORDERED: FUROSEMIDE 40 MG TAB As Ordered ONE (09:03)
[2024-05-31] MEDS ORDERED: INSULIN LISPRO (NovoLOG) PER UNIT As Ordered ONE (09:03)
[2024-05-31] MEDS ORDERED: MOM 30ML SUSPENSION UDC As Ordered ONE (10:49)
[2024-05-31 12:00] VITALS: BP 121/58; TEMP 97.2; O2SAT 97
[2024-05-31 13:19] VITALS: O2SAT 94
[2024-05-31 16:12] LABS: BLOOD UREA NITROGEN 26 MG/DL (9-23); CARBON DIOXIDE LEVEL 36 MMOL/L (20-31); CHLORIDE LEVEL 101 MMOL/L (98-107); CREATININE FOR GFR 1.03 MG/DL (0.55-1.30); GLOMERULAR FILTRATION RATE 53.7 (>32); GLUCOSE, FASTING 150 MG/DL (74-106); POTASSIUM SERUM 4.9 MMOL/L (3.5-5.1); SODIUM LEVEL 136 MMOL/L (136-145)
[2024-05-31 16:13] LABS: ALBUMIN 2.4 G/DL (3.2-5.2); ALKALINE PHOSPHATASE 143 U/L (46-116); ALT/SGPT 36 U/L (7.0-40); AST/SGOT 35 U/L (<34); BILIRUBIN,TOTAL 0.4 MG/DL (0.3-1.2); CALCIUM LEVEL 8.6 MG/DL (8.3-10.6); MAGNESIUM LEVEL 1.9 MG/DL (1.8-2.4); PHOSPHORUS LEVEL 4.5 MG/DL (2.4-5.1); TOTAL PROTEIN 5.6 G/DL (5.7-8.2)
[2024-05-31 16:23] LABS: BASO % 0.3 % (0.0-1.0); EOS # 0.2 10^3/uL (0.0-0.5); EOS % 1.4 % (0.0-3.0); HEMATOCRIT 28.3 % (36.0-47.0); HEMOGLOBIN 7.9 g/dl (12.0-15.5); LYMPH # 1.2 10^3/uL (1.5-5.0); LYMPH % 10.3 % (24.0-44.0); MEAN CORPUSCULAR HEMOGLOBIN 28.3 pg (27.0-33.0); MEAN CORPUSCULAR HGB CONC 27.9 g/dl (32.0-36.5); MEAN CORPUSCULAR VOLUME 101.4 fl (80.0-96.0); MONO # 1.6 10^3/uL (0.0-0.8); MONO % 13.7 % (2.0-8.0); NEUTROPHILS # 8.4 10^3/uL (1.5-8.5); NEUTROPHILS % 73.9 % (36.0-66.0); PLATELET COUNT, AUTOMATED 274 10^3/uL (150-450); RED BLOOD COUNT 2.79 10^6/uL (4.00-5.40); WHITE BLOOD COUNT 11.4 10^3/uL (4.0-10.0)
[2024-05-31 19:57] VITALS: BP 139/65; TEMP 97.3; O2SAT 97
[2024-05-31 21:20] VITALS: O2SAT 59
[2024-05-31 21:22] VITALS: O2SAT 96
[2024-06-01] VITALS (7 sets, daily range): BP systolic 113–139; BP diastolic 58–71; TEMP 97.5–98.1; O2SAT 80–94
[2024-06-01 08:24] LABS: BASO % 0.4 % (0.0-1.0); EOS # 0.3 10^3/uL (0.0-0.5); EOS % 4.3 % (0.0-3.0); HEMATOCRIT 29.7 % (36.0-47.0); HEMOGLOBIN 8.3 g/dl (12.0-15.5); LYMPH # 1.1 10^3/uL (1.5-5.0); LYMPH % 14.2 % (24.0-44.0); MEAN CORPUSCULAR HEMOGLOBIN 28.4 pg (27.0-33.0); MEAN CORPUSCULAR HGB CONC 27.9 g/dl (32.0-36.5); MEAN CORPUSCULAR VOLUME 101.7 fl (80.0-96.0); MONO # 0.9 10^3/uL (0.0-0.8); MONO % 12.2 % (2.0-8.0); NEUTROPHILS # 5.1 10^3/uL (1.5-8.5); NEUTROPHILS % 68.6 % (36.0-66.0); PLATELET COUNT, AUTOMATED 267 10^3/uL (150-450); RED BLOOD COUNT 2.92 10^6/uL (4.00-5.40); WHITE BLOOD COUNT 7.4 10^3/uL (4.0-10.0)
[2024-06-01 08:48] LABS: BLOOD UREA NITROGEN 23 MG/DL (9-23); CALCIUM LEVEL 8.8 MG/DL (8.3-10.6); CARBON DIOXIDE LEVEL 38 MMOL/L (20-31); CHLORIDE LEVEL 100 MMOL/L (98-107); CREATININE FOR GFR 0.68 MG/DL (0.55-1.30); GLOMERULAR FILTRATION RATE > 60.0 (>32); GLUCOSE, FASTING 149 MG/DL (74-106); POTASSIUM SERUM 4.7 MMOL/L (3.5-5.1); SODIUM LEVEL 138 MMOL/L (136-145)
[2024-06-01] MEDS: LevoFLOXacin 250 MG TABLET PO SCH (10:04)
[2024-06-02 03:40] VITALS: BP 122/62; TEMP 97.5; O2SAT 93
[2024-06-02 09:31] LABS: BASO # 0.1 10^3/uL (0.0-0.2); BASO % 0.6 % (0.0-1.0); EOS # 0.3 10^3/uL (0.0-0.5); EOS % 3.8 % (0.0-3.0); HEMATOCRIT 28.2 % (36.0-47.0); HEMOGLOBIN 7.7 g/dl (12.0-15.5); LYMPH # 0.9 10^3/uL (1.5-5.0); LYMPH % 11.5 % (24.0-44.0); MEAN CORPUSCULAR HEMOGLOBIN 29.2 pg (27.0-33.0); MEAN CORPUSCULAR HGB CONC 27.3 g/dl (32.0-36.5); MEAN CORPUSCULAR VOLUME 106.8 fl (80.0-96.0); MONO # 0.8 10^3/uL (0.0-0.8); MONO % 10.1 % (2.0-8.0); NEUTROPHILS # 5.8 10^3/uL (1.5-8.5); NEUTROPHILS % 73.6 % (36.0-66.0); PLATELET COUNT, AUTOMATED 279 10^3/uL (150-450); RED BLOOD COUNT 2.64 10^6/uL (4.00-5.40); WHITE BLOOD COUNT 7.8 10^3/uL (4.0-10.0)
[2024-06-02 12:00] VITALS: BP 142/70; TEMP 97.3; O2SAT 94
[2024-06-02 19:29] VITALS: BP 136/72; TEMP 97.5; O2SAT 93
[2024-06-02 20:11] VITALS: O2SAT 97
[2024-06-02] MEDS: LORazepam 0.5 MG TAB PO PRN (21:37)
[2024-06-03 04:58] VITALS: BP 135/63; TEMP 98.1; O2SAT 91
[2024-06-03] MEDS: QUEtiapine FUMARATE 25 MG TAB PO ONE (05:12)
[2024-06-03 06:48] LABS: BASO # 0.1 10^3/uL (0.0-0.2); BASO % 0.5 % (0.0-1.0); EOS # 0.4 10^3/uL (0.0-0.5); EOS % 3.7 % (0.0-3.0); HEMATOCRIT 30.8 % (36.0-47.0); HEMOGLOBIN 8.9 g/dl (12.0-15.5); LYMPH % 10.7 % (24.0-44.0); MEAN CORPUSCULAR HEMOGLOBIN 28.5 pg (27.0-33.0); MEAN CORPUSCULAR HGB CONC 28.9 g/dl (32.0-36.5); MEAN CORPUSCULAR VOLUME 98.7 fl (80.0-96.0); MONO % 10.1 % (2.0-8.0); NEUTROPHILS # 7.3 10^3/uL (1.5-8.5); NEUTROPHILS % 74.7 % (36.0-66.0); PLATELET COUNT, AUTOMATED 264 10^3/uL (150-450); RED BLOOD COUNT 3.12 10^6/uL (4.00-5.40); WHITE BLOOD COUNT 9.8 10^3/uL (4.0-10.0)
[2024-06-03 07:27] LABS: ALBUMIN 2.5 G/DL (3.2-5.2); ALKALINE PHOSPHATASE 114 U/L (46-116); ALT/SGPT 25 U/L (7.0-40); AST/SGOT 43 U/L (<34); BILIRUBIN,TOTAL 0.4 MG/DL (0.3-1.2); BLOOD UREA NITROGEN 13 MG/DL (9-23); CALCIUM LEVEL 9.1 MG/DL (8.3-10.6); CARBON DIOXIDE LEVEL 34 MMOL/L (20-31); CHLORIDE LEVEL 96 MMOL/L (98-107); CREATININE FOR GFR 0.61 MG/DL (0.55-1.30); GLOMERULAR FILTRATION RATE > 60.0 (>32); GLUCOSE, FASTING 153 MG/DL (74-106); POTASSIUM SERUM 4.8 MMOL/L (3.5-5.1); SODIUM LEVEL 135 MMOL/L (136-145); TOTAL PROTEIN 6.1 G/DL (5.7-8.2)
[2024-06-03] MEDS: QUEtiapine FUMARATE 50MG TAB PO SCH (08:34)
[2024-06-03 12:00] VITALS: BP 124/61; TEMP 97.7; O2SAT 92
[2024-06-03 20:39] VITALS: BP 130/68; TEMP 97.3; O2SAT 92
[2024-06-04 04:14] VITALS: BP 129/68; TEMP 97.2; O2SAT 98
[2024-06-04 11:56] VITALS: BP 126/66; TEMP 97.3; O2SAT 94
[2024-06-04 20:58] VITALS: BP 141/76; TEMP 97.5; O2SAT 95
[2024-06-04 21:00] VITALS: O2SAT 95
[2024-06-05 04:23] VITALS: BP 137/77; TEMP 97.5; O2SAT 96
[2024-06-05 12:00] VITALS: BP 134/77; TEMP 97.9; O2SAT 96
[2024-06-05 20:26] VITALS: BP 137/79; TEMP 97.7; O2SAT 95
[2024-06-06] VITALS (18 sets, daily range): BP systolic 121–130; BP diastolic 61–66; TEMP 97.2–97.9; O2SAT 72–99
[2024-06-07 04:00] VITALS: BP 139/79; TEMP 97.3; O2SAT 96
[2024-06-07 04:10] VITALS: O2SAT 82
[2024-06-07 04:13] VITALS: O2SAT 93
[2024-06-07] MEDS: MOM 30ML SUSPENSION UDC PO PRN (10:29)
[2024-06-07 12:00] VITALS: BP 128/65; TEMP 97.5; O2SAT 96
[2024-06-07 19:27] VITALS: BP 121/50; TEMP 97.7; O2SAT 97
[2024-06-08 04:46] VITALS: BP 141/80; TEMP 97.7; O2SAT 97
[2024-06-08 20:16] VITALS: BP 137/76; TEMP 97.7; O2SAT 97
[2024-06-09 04:35] VITALS: BP 143/75; TEMP 97.2; O2SAT 96
[2024-06-09 12:00] VITALS: BP 140/76; TEMP 97.3; O2SAT 97
[2024-06-09 18:32] LABS: BLOOD UREA NITROGEN 15 MG/DL (9-23); CALCIUM LEVEL 8.7 MG/DL (8.3-10.6); CARBON DIOXIDE LEVEL 37 MMOL/L (20-31); CHLORIDE LEVEL 97 MMOL/L (98-107); CREATININE FOR GFR 0.67 MG/DL (0.55-1.30); GLOMERULAR FILTRATION RATE > 60.0 (>32); GLUCOSE, FASTING 156 MG/DL (74-106); POTASSIUM SERUM 4.5 MMOL/L (3.5-5.1); SODIUM LEVEL 135 MMOL/L (136-145)
[2024-06-09 19:35] VITALS: BP 131/72; TEMP 97.7; O2SAT 98
[2024-06-09] MEDS: PERCOCET 5MG/325MG TAB PO ONE (19:43)
[2024-06-09] MEDS: TAMSULOSIN 0.4 MG CAP PO SCH (20:48)
[2024-06-10 04:03] VITALS: BP 129/70; TEMP 97.7; O2SAT 97
[2024-06-10 12:00] VITALS: BP 101/51; TEMP 97.4; O2SAT 94
[2024-06-10] MEDS: FUROSEMIDE 40 MG TAB PO ONE (13:46)
[2024-06-10 20:13] VITALS: BP 133/76; TEMP 98.1; O2SAT 99
[2024-06-11 03:18] VITALS: BP 142/72; TEMP 97.5; O2SAT 96
[2024-06-11] MEDS: FUROSEMIDE 40 MG TAB PO SCH (07:59)
[2024-06-11 08:00] VITALS: BP 145/75
[2024-06-11 12:00] VITALS: BP 140/75; TEMP 97.9; O2SAT 99
[2024-06-11 20:47] VITALS: BP 121/64; TEMP 98.2; O2SAT 97
[2024-06-12 04:22] VITALS: BP 140/71; TEMP 97.7; O2SAT 97
[2024-06-12 12:00] VITALS: BP 136/72; TEMP 97.3; O2SAT 100
[2024-06-12 20:40] VITALS: BP 136/70; TEMP 97.9; O2SAT 99
[2024-06-13 03:30] VITALS: BP 135/68; TEMP 97.7; O2SAT 98
[2024-06-13 12:00] VITALS: BP 117/62; TEMP 97.5; O2SAT 98
[2024-06-13 20:20] VITALS: BP 128/62; TEMP 97.9; O2SAT 93
[2024-06-14 05:00] VITALS: BP 129/69; TEMP 97.7; O2SAT 98
[2024-06-14 08:38] VITALS: BP 125/68
[2024-06-14 12:00] VITALS: BP 126/77; TEMP 97.9; O2SAT 96
[2024-06-14 21:09] VITALS: BP 141/78; TEMP 97.3; O2SAT 98
[2024-06-15 04:50] VITALS: BP 138/78; TEMP 97.7; O2SAT 95
[2024-06-15 08:52] VITALS: BP 137/79
[2024-06-15 12:00] VITALS: BP 142/76; TEMP 97.9; O2SAT 98
[2024-06-15 19:39] VITALS: BP 130/78; TEMP 97.2; O2SAT 100
[2024-06-16 04:21] VITALS: BP 131/72; TEMP 98.1; O2SAT 100
[2024-06-16 12:00] VITALS: BP 133/72; TEMP 97.2; O2SAT 100
[2024-06-16 20:26] VITALS: BP 132/70; TEMP 97.3; O2SAT 99
[2024-06-17 04:28] VITALS: BP 109/53; TEMP 97.9; O2SAT 98
[2024-06-17 12:00] VITALS: BP 138/66; TEMP 98.2; O2SAT 99
[2024-06-17] MEDS: PREGABALIN 25 MG CAP (LYRICA) PO ONE (17:08)
[2024-06-17 20:30] VITALS: BP 120/60; TEMP 97.5; O2SAT 97
[2024-06-17] MEDS: traZODone 50 MG TAB PO SCH (21:00)
[2024-06-18 04:00] VITALS: BP 120/59; TEMP 97.9; O2SAT 97
[2024-06-18] MEDS: PREGABALIN 25 MG CAP (LYRICA) PO SCH (08:06)
[2024-06-18 12:00] VITALS: BP 120/85; TEMP 98.1; O2SAT 96
[2024-06-18 20:49] VITALS: BP 103/63; TEMP 98.8; O2SAT 98
[2024-06-19 05:00] VITALS: BP 94/62; TEMP 97.8; O2SAT 98
[2024-06-19 06:09] LABS: BASO % 0.5 % (0.0-1.0); EOS # 0.4 10^3/uL (0.0-0.5); EOS % 7.9 % (0.0-3.0); HEMATOCRIT 28.5 % (36.0-47.0); LYMPH # 1.2 10^3/uL (1.5-5.0); LYMPH % 22.2 % (24.0-44.0); MEAN CORPUSCULAR HEMOGLOBIN 28.7 pg (27.0-33.0); MEAN CORPUSCULAR HGB CONC 28.1 g/dl (32.0-36.5); MEAN CORPUSCULAR VOLUME 102.2 fl (80.0-96.0); MONO # 0.7 10^3/uL (0.0-0.8); MONO % 12.3 % (2.0-8.0); NEUTROPHILS # 3.1 10^3/uL (1.5-8.5); NEUTROPHILS % 56.7 % (36.0-66.0); PLATELET COUNT, AUTOMATED 177 10^3/uL (150-450); RED BLOOD COUNT 2.79 10^6/uL (4.00-5.40); WHITE BLOOD COUNT 5.5 10^3/uL (4.0-10.0)
[2024-06-19 06:29] LABS: ALBUMIN 2.6 G/DL (3.2-5.2); ALKALINE PHOSPHATASE 82 U/L (46-116); ALT/SGPT 13 U/L (7.0-40); AST/SGOT 25 U/L (<34); BILIRUBIN,TOTAL 0.3 MG/DL (0.3-1.2); BLOOD UREA NITROGEN 21 MG/DL (9-23); CALCIUM LEVEL 8.6 MG/DL (8.3-10.6); CARBON DIOXIDE LEVEL 35 MMOL/L (20-31); CHLORIDE LEVEL 101 MMOL/L (98-107); CREATININE FOR GFR 0.84 MG/DL (0.55-1.30); GLOMERULAR FILTRATION RATE > 60.0 (>32); GLUCOSE, FASTING 136 MG/DL (74-106); POTASSIUM SERUM 4.9 MMOL/L (3.5-5.1); SODIUM LEVEL 136 MMOL/L (136-145)
[2024-06-19 12:00] VITALS: BP 96/50; TEMP 97.9; O2SAT 92
[2024-06-19 13:30] VITALS: BP 104/56
[2024-06-19 17:30] VITALS: BP 105/54
[2024-06-19 20:22] VITALS: BP 133/82; TEMP 97.7; O2SAT 100
[2024-06-20 04:36] VITALS: BP 129/73; TEMP 97.7; O2SAT 99
[2024-06-20 12:00] VITALS: BP 116/60; TEMP 97.7; O2SAT 96
[2024-06-20 20:31] VITALS: BP 110/59; TEMP 97.7; O2SAT 97
[2024-06-21 04:52] VITALS: BP 115/59; TEMP 97.7; O2SAT 99
[2024-06-21 12:00] VITALS: BP 114/58; TEMP 97.9; O2SAT 99
[2024-06-21 19:30] VITALS: BP 132/65; TEMP 98.2; O2SAT 96
[2024-06-22 04:00] VITALS: BP 124/64; TEMP 97.5; O2SAT 99
[2024-06-22 12:00] VITALS: BP 118/64; TEMP 97.3; O2SAT 98
[2024-06-22 21:40] VITALS: BP 116/67; TEMP 97.7; O2SAT 99
[2024-06-23 03:30] VITALS: BP 115/66; TEMP 97.5; O2SAT 99
[2024-06-23 12:00] VITALS: BP 99/44; TEMP 98.1; O2SAT 98
[2024-06-23 20:00] VITALS: BP 139/65; TEMP 97.3; O2SAT 98
[2024-06-23] MEDS: HEPARIN SOD (PORCINE) 5000UNITS/ML 1ML VIAL/SYRINGE SC SCH (20:42)
[2024-06-24 04:00] VITALS: BP 137/67; TEMP 97.3; O2SAT 95
[2024-06-24 12:00] VITALS: BP 116/60; TEMP 98.6; O2SAT 97
[2024-06-24 20:00] VITALS: BP 116/61; TEMP 98.1; O2SAT 95
[2024-06-25 04:00] VITALS: BP 112/56; TEMP 97.3; O2SAT 97
[2024-06-25 07:06] LABS: BLOOD UREA NITROGEN 20 MG/DL (9-23); CALCIUM LEVEL 8.9 MG/DL (8.3-10.6); CARBON DIOXIDE LEVEL 38 MMOL/L (20-31); CHLORIDE LEVEL 100 MMOL/L (98-107); CREATININE FOR GFR 0.81 MG/DL (0.55-1.30); GLOMERULAR FILTRATION RATE > 60.0 (>32); GLUCOSE, FASTING 122 MG/DL (74-106); MAGNESIUM LEVEL 2.3 MG/DL (1.8-2.4); POTASSIUM SERUM 5.2 MMOL/L (3.5-5.1); SODIUM LEVEL 136 MMOL/L (136-145)
[2024-06-25 09:08] VITALS: BP 125/65
[2024-06-25 13:11] VITALS: BP 125/65; TEMP 97.7; O2SAT 100
[2024-06-25 14:13] LABS: BLOOD UREA NITROGEN 20 MG/DL (9-23); CALCIUM LEVEL 9.1 MG/DL (8.3-10.6); CARBON DIOXIDE LEVEL 37 MMOL/L (20-31); CHLORIDE LEVEL 98 MMOL/L (98-107); CREATININE FOR GFR 0.82 MG/DL (0.55-1.30); GLOMERULAR FILTRATION RATE > 60.0 (>32); GLUCOSE, FASTING 177 MG/DL (74-106); POTASSIUM SERUM 4.6 MMOL/L (3.5-5.1); SODIUM LEVEL 137 MMOL/L (136-145)
[2024-06-25 20:00] VITALS: BP 125/69; TEMP 97.7; O2SAT 100
[2024-06-26 04:00] VITALS: BP 118/55; TEMP 97.5; O2SAT 98
[2024-06-26 08:22] LABS: EOS # 0.4 10^3/uL (0.0-0.5); EOS % 9.2 % (0.0-3.0); HEMATOCRIT 30.4 % (36.0-47.0); HEMOGLOBIN 8.9 g/dl (12.0-15.5); LYMPH # 0.9 10^3/uL (1.5-5.0); LYMPH % 22.9 % (24.0-44.0); MEAN CORPUSCULAR HEMOGLOBIN 30.1 pg (27.0-33.0); MEAN CORPUSCULAR HGB CONC 29.3 g/dl (32.0-36.5); MEAN CORPUSCULAR VOLUME 102.7 fl (80.0-96.0); MONO # 0.6 10^3/uL (0.0-0.8); MONO % 14.1 % (2.0-8.0); NEUTROPHILS # 2.2 10^3/uL (1.5-8.5); NEUTROPHILS % 52.6 % (36.0-66.0); PLATELET COUNT, AUTOMATED 169 10^3/uL (150-450); RED BLOOD COUNT 2.96 10^6/uL (4.00-5.40); WHITE BLOOD COUNT 4.1 10^3/uL (4.0-10.0)
[2024-06-26 08:36] VITALS: BP 121/58
[2024-06-27 04:00] VITALS: BP 119/58; TEMP 97.5; O2SAT 96
[2024-06-27 08:34] VITALS: BP 130/65
[2024-06-28 04:00] VITALS: BP 126/68; TEMP 97.5; O2SAT 99
[2024-06-28 08:34] VITALS: BP 107/60
[2024-06-28 20:36] VITALS: BP 125/60; TEMP 97.5; O2SAT 99
[2024-06-29 03:46] VITALS: BP 124/66; TEMP 97.2; O2SAT 99
[2024-06-29 16:00] VITALS: BP 108/55; TEMP 97.5; O2SAT 97
[2024-06-30 03:40] VITALS: BP 111/57; TEMP 98.1; O2SAT 98
[2024-06-30 06:45] LABS: BLOOD UREA NITROGEN 24 MG/DL (9-23); CALCIUM LEVEL 8.5 MG/DL (8.3-10.6); CARBON DIOXIDE LEVEL 35 MMOL/L (20-31); CHLORIDE LEVEL 101 MMOL/L (98-107); CREATININE FOR GFR 0.76 MG/DL (0.55-1.30); GLOMERULAR FILTRATION RATE > 60.0 (>32); GLUCOSE, FASTING 123 MG/DL (74-106); MAGNESIUM LEVEL 1.7 MG/DL (1.8-2.4); POTASSIUM SERUM 4.7 MMOL/L (3.5-5.1); SODIUM LEVEL 136 MMOL/L (136-145)
[2024-07-01 03:20] VITALS: BP 109/59; TEMP 97.7; O2SAT 100
[2024-07-01 08:56] VITALS: BP 113/58
[2024-07-02 03:50] VITALS: BP 115/58; TEMP 97.7; O2SAT 94
[2024-07-02 20:00] VITALS: BP 119/65; TEMP 97.5; O2SAT 96
[2024-07-03 06:50] VITALS: BP 145/80; TEMP 98.2; O2SAT 96
[2024-07-03 08:38] VITALS: BP 112/59
[2024-07-03 12:50] VITALS: BP 117/79
[2024-07-03] MEDS: FUROSEMIDE 40 MG TAB PO ONE (12:50)
[2024-07-03 20:24] VITALS: BP 128/61; TEMP 97.9; O2SAT 94
[2024-07-04 04:27] VITALS: BP 113/56; TEMP 97.9; O2SAT 97
[2024-07-04 08:17] VITALS: BP 92/47
[2024-07-04 09:45] VITALS: BP 104/48
[2024-07-04 10:56] VITALS: BP 104/48
[2024-07-04 18:27] VITALS: BP 103/50
[2024-07-05] VITALS (7 sets, daily range): BP systolic 91–128; BP diastolic 38–75; TEMP 97.9; O2SAT 93–100
[2024-07-05 05:57] LABS: BASO % 0.3 % (0.0-1.0); EOS # 0.2 10^3/uL (0.0-0.5); EOS % 5.7 % (0.0-3.0); HEMATOCRIT 25.2 % (36.0-47.0); HEMOGLOBIN 7.2 g/dl (12.0-15.5); LYMPH # 1.1 10^3/uL (1.5-5.0); LYMPH % 35.5 % (24.0-44.0); MEAN CORPUSCULAR HGB CONC 28.6 g/dl (32.0-36.5); MEAN CORPUSCULAR VOLUME 101.6 fl (80.0-96.0); MONO # 0.4 10^3/uL (0.0-0.8); NEUTROPHILS # 1.4 10^3/uL (1.5-8.5); NEUTROPHILS % 45.2 % (36.0-66.0); PLATELET COUNT, AUTOMATED 109 10^3/uL (150-450); RED BLOOD COUNT 2.48 10^6/uL (4.00-5.40)
[2024-07-05 06:16] LABS: BLOOD UREA NITROGEN 30 MG/DL (9-23); CALCIUM LEVEL 7.9 MG/DL (8.3-10.6); CARBON DIOXIDE LEVEL 30 MMOL/L (20-31); CHLORIDE LEVEL 102 MMOL/L (98-107); GLOMERULAR FILTRATION RATE > 60.0 (>32); GLUCOSE, FASTING 134 MG/DL (74-106); MAGNESIUM LEVEL 1.7 MG/DL (1.8-2.4); POTASSIUM SERUM 4.7 MMOL/L (3.5-5.1); SODIUM LEVEL 134 MMOL/L (136-145)
[2024-07-05] MEDS: FUROSEMIDE 40 MG TAB PO SCH (15:27)
[2024-07-06 04:00] VITALS: BP 112/53; TEMP 97.8; O2SAT 96
[2024-07-06 13:41] LABS: BASO % 0.3 % (0.0-1.0); EOS # 0.1 10^3/uL (0.0-0.5); EOS % 3.8 % (0.0-3.0); HEMATOCRIT 27.8 % (36.0-47.0); HEMOGLOBIN 8.4 g/dl (12.0-15.5); LYMPH # 1.1 10^3/uL (1.5-5.0); LYMPH % 37.8 % (24.0-44.0); MEAN CORPUSCULAR HEMOGLOBIN 30.7 pg (27.0-33.0); MEAN CORPUSCULAR HGB CONC 30.2 g/dl (32.0-36.5); MEAN CORPUSCULAR VOLUME 101.5 fl (80.0-96.0); MONO # 0.3 10^3/uL (0.0-0.8); MONO % 9.8 % (2.0-8.0); NEUTROPHILS # 1.4 10^3/uL (1.5-8.5); PLATELET COUNT, AUTOMATED 100 10^3/uL (150-450); RED BLOOD COUNT 2.74 10^6/uL (4.00-5.40); WHITE BLOOD COUNT 2.9 10^3/uL (4.0-10.0)
[2024-07-06 14:06] LABS: ALBUMIN 2.6 G/DL (3.2-5.2); ALKALINE PHOSPHATASE 68 U/L (46-116); ALT/SGPT 12 U/L (7.0-40); AST/SGOT 30 U/L (<34); BILIRUBIN,TOTAL 0.2 MG/DL (0.3-1.2); BLOOD UREA NITROGEN 29 MG/DL (9-23); CALCIUM LEVEL 8.2 MG/DL (8.3-10.6); CARBON DIOXIDE LEVEL 30 MMOL/L (20-31); CHLORIDE LEVEL 100 MMOL/L (98-107); CREATININE FOR GFR 0.74 MG/DL (0.55-1.30); GLOMERULAR FILTRATION RATE > 60.0 (>32); GLUCOSE, FASTING 187 MG/DL (74-106); MAGNESIUM LEVEL 1.6 MG/DL (1.8-2.4); POTASSIUM SERUM 4.4 MMOL/L (3.5-5.1); SODIUM LEVEL 133 MMOL/L (136-145); TOTAL PROTEIN 6.2 G/DL (5.7-8.2)
[2024-07-06] MEDS: MAG SULF 1GM/100ML (MAG RUN) 1 GM in IV 1 EA IV SCH (17:14)
[2024-07-06] MEDS: MAGNESIUM OXIDE 400MG TAB (MAG-OX) PO SCH (20:00)
[2024-07-07 04:00] VITALS: BP 100/68; TEMP 97.5; O2SAT 94
[2024-07-07 21:49] VITALS: BP 110/47; TEMP 97.9; O2SAT 100
[2024-07-08 03:57] VITALS: BP 111/51; TEMP 97.7; O2SAT 98
[2024-07-09 04:00] VITALS: BP 125/58; TEMP 97.3; O2SAT 96
[2024-07-10 04:34] VITALS: BP 108/49; TEMP 97.9; O2SAT 98
[2024-07-10] MEDS ORDERED: TRAZ-252 PO (08:54)
[2024-07-10] MEDS ORDERED: QUET50TA4 PO (08:54)
[2024-07-10] MEDS ORDERED: FLOM0.4C39 PO (08:54)
[2024-07-10] MEDS ORDERED: PREG25CA3 PO (08:54)
[2024-07-10] MEDS ORDERED: FURO40TA2 PO (08:54)
[2024-07-10] MEDS ORDERED: MAGN400T2 PO (08:54)
== END 2024-07-10 11:29 | DRG 291 ==
LOC: EDBD 12:20 → M ED 12:20 → M ED INP 15:22 → M PCU 17:26 → M MSPAV 05-26 16:12
PROVIDERS: ADMIT Internal Medicine; ATTEND Internal Medicine
DX: I50.33 Acute on chronic diastolic (congestive) heart failure (principal); J96.02 Acute respiratory failure with hypercapnia; J96.21 Acute and chronic respiratory failure with hypoxia; N39.0 Urinary tract infection, site not specified; F05 Delirium due to known physiological condition; J98.11 Atelectasis; I47.20 Ventricular tachycardia, unspecified; J96.12 Chronic respiratory failure with hypercapnia; E87.5 Hyperkalemia; E11.9 Type 2 diabetes mellitus without complications; K76.1 Chronic passive congestion of liver; R74.01 Elevation of levels of liver transaminase levels; R53.1 Weakness; K76.0 Fatty (change of) liver, not elsewhere classified; E83.42 Hypomagnesemia; B96.5 Pseudomonas (aeruginosa) (mallei) (pseudomallei) as the cause of diseases classified elsewhere; Z88.0 Allergy status to penicillin; Z88.2 Allergy status to sulfonamides; Z88.6 Allergy status to analgesic agent; D64.9 Anemia, unspecified; Z87.891 Personal history of nicotine dependence